=== PATIENT | female | born 1935 | race Caucasian/White ===

== ENCOUNTER → 2016-07-08 | Outpatient (CLI) | payer MEDICARE, BC ==
[~2016-07-08] MED LIST: ACET-62 PO; ASPI-558 PO; BACL10TA PO; CARB15DR2 BOTH EYES; CHOL100030 PO; FEXO-118 PO; FLUT9.9S EA NOSTRIL; FURO-35 PO; HYDR-4180 PO; LACT1CAP70 PO; LEVO137T2 PO; METF-200 PO; OXYC1TAB8 PO; POTA10TA14 PO; TRAM50TA4 PO
--- NOTE | 2016-07-08 16:34 | DI ---
Indication: ITS.REASON: M79.605 PAIN IN LEFT LEG PROCEDURE: US VENOUS DUPLEX, LOWER EXT LT: Encounter: Initial Comparison: None Technique: Color Doppler duplex and grayscale sonographic imaging of the left lower extremity was performed. Findings: There is no evidence for acute deep venous thrombosis in the left thigh. Specifically, serial graded compression was performed from the inguinal ligament to the popliteal bifurcation, on the left thigh, demonstrating appropriate compressibility of the deep venous system. In addition, color and pulsed Doppler demonstrate appropriate spontaneous flow, variation with respiration, and augmentation with calf compression. At the ankle, normal flow is identified in the posterior tibial veins; these vessels are also normal in caliber. Impression: No evidence of acute DVT in the left lower limb. .
== END ==
LOC: IMA 16:05
PROVIDERS: ATTEND Family Medicine
DX: M79.605 Pain in left leg (principal); R22.42 Localized swelling, mass and lump, left lower limb

== ENCOUNTER → 2016-07-17 | Outpatient (CLI) | payer MEDICARE, BC ==
[~2016-07-17] MED LIST changes: +IOHEXOL 180 MG/ML 20ml INJECTION ONE; +LIDOCAINE 1% (10mg/ml) 5ml VIAL ONE; +MethylPREDNISolone ACETATE 40mg/1ml ONE
--- NOTE | 2016-07-17 10:22 | DI ---
Indication:ITS.REASON: M54.5 LOW BACK PAIN Procedure:EPIDURAL INJ.SPINE W FLUO CATH LUMBAR EPIDURAL INJECTION: The patient has low back and radicular pain. The patient has not had any previous epidurals. The details of the procedure, including the benefits, risks, and alternatives were explained to the patient. All of their questions were answered. They stated that they understood and wished to proceed. Informed consent was then obtained. A pre-procedural timeout was performed to confirm the correct patient and procedure. Utilizing aseptic technique, local lidocaine anesthetic, and fluoroscopic guidance throughout, a 22-gauge spinal needle was directed into the lumbar epidural space via an interlaminar approach at the L5-S1 level. Contrast was injected to assure proper positioning of the needle tip. A fluoroscopic image was then taken and archived. Subsequently, 120 mg Depo-Medrol was injected into the epidural space. The patient tolerated the procedure well. IMPRESSION: Successful lumbar epidural steroid injection. Fluoroscopy dose: 12.46 mGy (Cumulative air kerma) Sj Elizalde RPA/CLAUDIO performed this under my personal supervision. .
== END ==
LOC: IMA 09:16
PROVIDERS: ATTEND Physician Assistant Surgical
DX: M54.5 Low back pain (principal)
CPT/HCPCS: 62323; J1030; Q9965

== ENCOUNTER 2017-04-27 21:05 | Inpatient (IN) ==
[2017-04-27] MEDS ORDERED: ASPIRIN 81 MG CHEWABLE TABLET PO ONE (21:09)
[2017-04-27] MEDS ORDERED: LABETALOL 100mg/20ml INJECTION IVP ONE (21:19)
[2017-04-27] MEDS: SALINE FLUSH 10ml SYRINGE IVF PRN (21:31)
--- NOTE | 2017-04-27 21:31 | Emergency Department Report ---
Chest Pain HPI - General Chief Complaint: Chest Pain <Rubén Huizar Q - 05/01/17 16:22> Stated Complaint: chest pains <Rubén Huizar - 05/01/17 16:22> Time Seen by Provider: 04/27/17 21:15 <Rubén Huizar - 05/01/17 16:22> Source: patient <Maritza Rashid 04/27/17 21:33> Mode of arrival: wheelchair <Maritza Rashid 04/27/17 21:33> Limitations: no limitations <Maritza Rashid Severino Smith 04/27/17 21:33> - History of Present Illness HPI narrative: Pt presents with a c/o chest pressure which started this evening while pt was eating a salad for supper. Pt states she has had some shortness of breath she took one baby aspirin and then tried to lay down to rest. At that point the chest pressure continued she took one of her husbands NTG without relief and daughters then brought her to the ER. Pt denies nausea or vomiting. She dies not have pain to her neck, jaw, back or arms. She also denies diaphoresis <Maritza Rashid 04/27/17 21:33> MD complaint: chest pain <Maritza Rashid 04/27/17 21:33> Occurred At: home <Maritza Rashid 04/27/17 21:33> Onset (ago): hour(s) <Maritza Rashid 04/27/17 21:33> Duration: constant <Maritza Rashid 04/27/17 21:33> Onset: during rest <Maritza Rashid 04/27/17 21:33> Pain location: substernal <Maritza Rashid 04/27/17 21:33> Severity: moderate <Maritza Rashid 04/27/17 21:33> Quality: heaviness <Maritza Rashid 04/27/17 21:33> Pain radiation: none <Maritza Rashid 04/27/17 21:33> Relieving factors: nothing <Maritza Rashid 04/27/17 21:33> Exacerbating factors: exertion <Maritza Rashid R - 04/27/17 21:33> Aspirin Today: 81 mg x 1 <Maritza Rashid R - 04/27/17 21:33> Nitro Today: 0.4 mg x 1 <Maritza Rashid R - 04/27/17 21:33> - Related Data Home Medications Medication Instructions Recorded Confirmed Aspirin [Aspir 81] 81 mg PO HS #0 06/07/13 04/27/17 Cholecalciferol (Vitamin D3) 1,000 unit PO HS #0 06/07/13 04/27/17 (Vitamin D3) Metformin HCl 500 mg PO BID #0 06/07/13 04/27/17 Carboxymethylcellulos/Glycerin 1 drop BOTH EYES QID #0 07/07/15 04/27/17 [Refresh Optive Eye Drops] Fexofenadine HCl 180 mg PO DAILY #0 07/07/15 04/27/17 Levothyroxine Sodium 137 mcg PO DAILY #0 07/07/15 04/27/17 Acetaminophen 2 tab PO Q8H PRN #0 07/14/15 04/27/17 Potassium Chloride 10 meq PO BID #0 07/14/15 04/28/17 Vitamin B-12 1,000 mcg PO DAILY 04/27/17 04/27/17 Ferrous Sulfate [Iron] 65 mg PO DAILY 04/28/17 04/28/17 Furosemide [Lasix] 1 tab PO BID 04/28/17 04/28/17 Turmeric/Turmeric Ext/Pepr Ext 500 mg PO HS 04/28/17 04/28/17 [Turmeric Complex 500 mg Cap] Ubidecarenone [Co Q-10] 100 mg PO DAILY 04/28/17 04/28/17 <Rubén Huizar Q - 05/01/17 16:22> Allergies Allergy/AdvReac Type Severity Reaction Status Date / Time amlodipine Allergy Severe EDEMA Verified 04/28/17 07:18 diltiazem Allergy Intermediate ACHY Verified 04/28/17 07:18 MUSCLES & WEAKNESS doxazosin Allergy Intermediate ITCHING Verified 04/28/17 07:18 doxepin Allergy Intermediate WEIRD Verified 04/28/17 07:18 DREAMS lisinopril Allergy Intermediate ACHY Verified 04/28/17 07:18 MUSCLES & WEAKNESS losartan Allergy Intermediate ACHY Verified 04/28/17 07:18 MUSCLES & WEAKNESS pitavastatin Allergy Intermediate ACHY Verified 04/28/17 07:18 MUSCLES & WEAKNESS hydromorphone Allergy Mild NAUSEA Verified 04/28/17 07:18 Aaqtixi-Off-Ale Reductase Allergy Unknown Verified 04/28/17 07:18 Inhibitor hydrocodone AdvReac Unknown NAUSEA Verified 04/28/17 07:18 <Rubén Huizar Q - 05/01/17 16:22> Review of Systems All systems: reviewed and negative except as stated <Maritza Rashid 07/10 21:33> Constitutional: Reports: as per HPI <Maritza Rashid 04/27/17 21:33> Cardiovascular: Reports: as per HPI <Maritza Rashid 04/27/17 21:33> Respiratory: Reports: as per HPI <Maritza Rashid 04/27/17 21:33> Gastrointestinal: Reports: constipation <Maritza Rashid 04/27/17 21:33> Musculoskeletal: Reports: as per HPI <Maritza Rashid 04/27/17 21:33> Neurological: Reports: as per HPI <Maritza Rashid 04/27/17 21:33> [facility] Patient Stated Medical History Glaucoma Yes Hypertension Yes Diabetes Mellitus Type 2 Yes Osteoarthritis Yes <Rubén Huizar Q - 05/01/17 16:22> Patient Stated Medical History Glaucoma Yes Hypertension Yes Diabetes Mellitus Type 2 Yes Osteoarthritis Yes <Maritza Rashid 04/27/17 21:45> Physical Exam - Limitations Limitations: no limitations <Maritza Rashid 04/27/17 21:33> - General General appearance: alert, in no apparent distress <Maritza Rashid 04/27 21:33> - Normal Exams: Eyes:: Pupils are PERRLA w/ EOMI <Maritza Rashid 04/27/17 21:33> Chest/Respirations:: Clear all taveras, with good airflow <Maritza Rashid 04/27/17 21:33> Abdomen:: Bowel sounds positive, soft, non-tender, non-distended <Maritza Rashid 04/27/17 21:33> Musculoskeletal:: No tenderness, or deformity noted, good range of motion, all extremities <Maritza Rashid 04/27/17 21:33> Integumentary:: No rashes <Maritza Rashid 04/27/17 21:33> Neurological:: Patient is alert, and oriented, cranial nerves, motor/sensory/ cerebellar, exams w/o gross deficits, to observation <Maritza Rashid 07/10 21:33> Psychiatric:: Patient exhibits, appropriate attention, emotion and affect < Maritza Rashid 04/27/17 21:33> - Cardiovascular Cardiovascular exam: Present: tachycardia, irregular rhythm. Absent: systolic murmur <Maritza Rashid 04/27/17 21:33> - Expanded Cardiovascular Exam Peripheral pulses: 2+: dorsalis pedis (R), dorsalis pedis (L) <Maritza Rashid 04/27/17 21:33> Course Vital Signs Temperature 97.7 F 04/27/17 21:24 Pulse Rate 133 H 04/27/17 21:24 Respiratory Rate 28 H 04/27/17 21:24 Blood Pressure 180/81 H 04/27/17 21:24 Pulse Oximetry 97 04/27/17 21:24 Temperature 100.4 F 05/01/17 16:00 Pulse Rate 65 05/01/17 16:00 Respiratory Rate 18 05/01/17 11:53 Blood Pressure 168/72 H 05/01/17 16:00 Pulse Oximetry 97 05/01/17 16:00 <Rubén Huizar Q - 05/01/17 16:22> Vital Signs Temperature 97.7 F 04/27/17 21:24 Pulse Rate 133 H 04/27/17 21:24 Respiratory Rate 28 H 04/27/17 21:24 Blood Pressure 180/81 H 04/27/17 21:24 Pulse Oximetry 97 04/27/17 21:24 Temperature 100.4 F 05/01/17 16:00 Pulse Rate 65 05/01/17 16:00 Respiratory Rate 18 05/01/17 11:53 Blood Pressure 168/72 H 05/01/17 16:00 Pulse Oximetry 97 05/01/17 16:00 <Maritza Rashid 04/27/17 21:45> Chest Pain - MDM Narrative Medical decision making narrative: PT given Labetalol IV with no change in her rhythm. Verapamil IV at 5 mg with little change followed by Verapamil at 10 mg with a successful drop in rate to 75-100bpm. Pt remains is atrial fib. She reports chest "heaviness" relieved. Lovenox given. Labs, X ray, and EKG reviewed. Dr Patel called for admission. He will admit pt observation. Findings and plan discussed with pt and family, questions answered, pt voices understanding. <Maritza Rashid - 04/27/17 23:02> - Differential Diagnosis Likely: stable angina, unstable angina pectoris, atypical chest pain, chest pain (atrial fib, atrial flutter) <Maritza Rashid - 04/27/17 21:33> - Lab Data Attestation: I reviewed the patient's lab results. <Maritza Rashid - 04/27 21:45> Result diagrams: 05/01/17 04:23 05/01/17 04:23 <Rubén Huizar Q - 05/01/17 16:22> Lab Results 04/27/17 04/27/17 04/27/17 Range/Units 21:26 21:26 21:26 WBC 9.9 (4.5-11.0) T/MM3 RBC 4.70 (4.00-5.20) M/MM3 Hgb 13.9 (12-16) GM/DL Hct 41.0 (36-46) % MCV 87.2 (80-100) UM3 MCH 29.6 (26-34) UUG MCHC 33.9 (31-37) GM/DL RDW Std Deviation 41.1 (36.9-50.2) FL Plt Count 294 (130-400) T/MM3 MPV 8.9 L (9.4-12.4) UM3 Immature Gran % (Auto) 0.2 (0.0-0.5) % Neut % (Auto) 63.5 (33-66) % Lymph % (Auto) 25.3 (23-45) % [place] % (Auto) 6.0 (0-9.0) % Eos % (Auto) 4.3 H (0-4) % Baso % (Auto) 0.7 (0-2) % Neut # (Auto) 6.3 (1.8-7.7) T/MM3 Lymph # (Auto) 2.5 (1-4.8) T/MM3 [place] # (Auto) 0.6 (0-0.8) T/MM3 Eos # (Auto) 0.4 (0-0.5) T/MM3 Baso # (Auto) 0.1 (0-0.2) T/MM3 Abs Immat Gran (auto) 0.02 (0.00-0.03) T/MM3 Turbidity 37 H (0-20) Sodium 143 (134-144) MEQ/L Potassium 4.0 (3.6-5) MEQ/L Chloride 104 (98-107) MEQ/L Carbon Dioxide 23 (22-30) MEQ/L Anion Gap 16 H (5-15) MEQ/L BUN 19.0 H (7-17) MG/DL Creatinine 1.2 (0.7-1.2) mg/dL GFR Calculation 43 BUN/Creatinine Ratio 16 (6-26) RATIO Glucose 152 H (65-110) MG/DL Calculated Osmolality 280 (261-280) MOSM/KG Calcium 10.0 (8.4-10.2) MG/DL Magnesium (1.6-2.3) MG/DL Icterus Index < 2 (0-7) Troponin I < 0.012 (0-0.12) ng/ml NT-Pro-B Natriuret Pep 190 H (0-175) pg/mL TSH 3.53 (0.47-4.68) MIU/L Specimen Hemolysis < 15 (0-25) 04/27/17 04/28/17 04/28/17 Range/Units 21:26 09:09 09:09 WBC 7.3 (4.5-11.0) T/MM3 RBC 4.44 (4.00-5.20) M/MM3 Hgb 12.7 (12-16) GM/DL Hct 39.3 (36-46) % MCV 88.5 (80-100) UM3 MCH 28.6 (26-34) UUG MCHC 32.3 (31-37) GM/DL RDW Std Deviation 42.3 (36.9-50.2) FL Plt Count 260 (130-400) T/MM3 MPV 9.0 L (9.4-12.4) UM3 Immature Gran % (Auto) (0.0-0.5) % Neut % (Auto) (33-66) % Lymph % (Auto) (23-45) % [place] % (Auto) (0-9.0) % Eos % (Auto) (0-4) % Baso % (Auto) (0-2) % Neut # (Auto) (1.8-7.7) T/MM3 Lymph # (Auto) (1-4.8) T/MM3 [place] # (Auto) (0-0.8) T/MM3 Eos # (Auto) (0-0.5) T/MM3 Baso # (Auto) (0-0.2) T/MM3 Abs Immat Gran (auto) (0.00-0.03) T/MM3 Turbidity < 20 (0-20) Sodium 143 (134-144) MEQ/L Potassium 4.1 (3.6-5) MEQ/L Chloride 104 (98-107) MEQ/L Carbon Dioxide 25 (22-30) MEQ/L Anion Gap 14 (5-15) MEQ/L BUN 19.0 H (7-17) MG/DL Creatinine 1.2 (0.7-1.2) mg/dL GFR Calculation 43 BUN/Creatinine Ratio 16 (6-26) RATIO Glucose 182 H (65-110) MG/DL Calculated Osmolality 282 H (261-280) MOSM/KG Calcium 9.8 (8.4-10.2) MG/DL Magnesium 2.0 2.0 (1.6-2.3) MG/DL Icterus Index < 2 (0-7) Troponin I 0.134 H D (0-0.12) ng/ml NT-Pro-B Natriuret Pep (0-175) pg/mL TSH (0.47-4.68) MIU/L Specimen Hemolysis < 15 (0-25) <Rubén Huizar Q - 05/01/17 16:22> Lab Results 04/27/17 04/27/17 04/27/17 Range/Units 21:26 21:26 21:26 WBC 9.9 (4.5-11.0) T/MM3 RBC 4.70 (4.00-5.20) M/MM3 Hgb 13.9 (12-16) GM/DL Hct 41.0 (36-46) % MCV 87.2 (80-100) UM3 MCH 29.6 (26-34) UUG MCHC 33.9 (31-37) GM/DL RDW Std Deviation 41.1 (36.9-50.2) FL Plt Count 294 (130-400) T/MM3 MPV 8.9 L (9.4-12.4) UM3 Immature Gran % (Auto) 0.2 (0.0-0.5) % Neut % (Auto) 63.5 (33-66) % Lymph % (Auto) 25.3 (23-45) % [place] % (Auto) 6.0 (0-9.0) % Eos % (Auto) 4.3 H (0-4) % Baso % (Auto) 0.7 (0-2) % Neut # (Auto) 6.3 (1.8-7.7) T/MM3 Lymph # (Auto) 2.5 (1-4.8) T/MM3 [place] # (Auto) 0.6 (0-0.8) T/MM3 Eos # (Auto) 0.4 (0-0.5) T/MM3 Baso # (Auto) 0.1 (0-0.2) T/MM3 Abs Immat Gran (auto) 0.02 (0.00-0.03) T/MM3 Turbidity 37 H (0-20) Sodium 143 (134-144) MEQ/L Potassium 4.0 (3.6-5) MEQ/L Chloride 104 (98-107) MEQ/L Carbon Dioxide 23 (22-30) MEQ/L Anion Gap 16 H (5-15) MEQ/L BUN 19.0 H (7-17) MG/DL Creatinine 1.2 (0.7-1.2) mg/dL GFR Calculation 43 BUN/Creatinine Ratio 16 (6-26) RATIO Glucose 152 H (65-110) MG/DL Calculated Osmolality 280 (261-280) MOSM/KG Calcium 10.0 (8.4-10.2) MG/DL Magnesium (1.6-2.3) MG/DL Icterus Index < 2 (0-7) Troponin I < 0.012 (0-0.12) ng/ml NT-Pro-B Natriuret Pep 190 H (0-175) pg/mL TSH 3.53 (0.47-4.68) MIU/L Specimen Hemolysis < 15 (0-25) 04/27/17 04/28/17 04/28/17 Range/Units 21:26 09:09 09:09 WBC 7.3 (4.5-11.0) T/MM3 RBC 4.44 (4.00-5.20) M/MM3 Hgb 12.7 (12-16) GM/DL Hct 39.3 (36-46) % MCV 88.5 (80-100) UM3 MCH 28.6 (26-34) UUG MCHC 32.3 (31-37) GM/DL RDW Std Deviation 42.3 (36.9-50.2) FL Plt Count 260 (130-400) T/MM3 MPV 9.0 L (9.4-12.4) UM3 Immature Gran % (Auto) (0.0-0.5) % Neut % (Auto) (33-66) % Lymph % (Auto) (23-45) % [place] % (Auto) (0-9.0) % Eos % (Auto) (0-4) % Baso % (Auto) (0-2) % Neut # (Auto) (1.8-7.7) T/MM3 Lymph # (Auto) (1-4.8) T/MM3 [place] # (Auto) (0-0.8) T/MM3 Eos # (Auto) (0-0.5) T/MM3 Baso # (Auto) (0-0.2) T/MM3 Abs Immat Gran (auto) (0.00-0.03) T/MM3 Turbidity < 20 (0-20) Sodium 143 (134-144) MEQ/L Potassium 4.1 (3.6-5) MEQ/L Chloride 104 (98-107) MEQ/L Carbon Dioxide 25 (22-30) MEQ/L Anion Gap 14 (5-15) MEQ/L BUN 19.0 H (7-17) MG/DL Creatinine 1.2 (0.7-1.2) mg/dL GFR Calculation 43 BUN/Creatinine Ratio 16 (6-26) RATIO Glucose 182 H (65-110) MG/DL Calculated Osmolality 282 H (261-280) MOSM/KG Calcium 9.8 (8.4-10.2) MG/DL Magnesium 2.0 2.0 (1.6-2.3) MG/DL Icterus Index < 2 (0-7) Troponin I 0.134 H D (0-0.12) ng/ml NT-Pro-B Natriuret Pep (0-175) pg/mL TSH (0.47-4.68) MIU/L Specimen Hemolysis < 15 (0-25) <Maritza Rashid 04/27/17 21:45> - Radiology Data Attestation: I reviewed the patient's radiology results. <GayeRubén 05/01/17 16:22> I reviewed the patient's radiology results. (per Dr Huizar) < Maritza Rashid 04/27/17 23:02> Chest x-ray: No acute cardiopulmonary findings <Rubén Huizar 05/01/17 16:22> - EKG Data EKG #1 EKG attestation: Yes: I reviewed and interpreted this EKG. <GayeRubén 05/01/17 16:22> Yes: I reviewed and interpreted this EKG. <Maritza Rashid 04/27/17 23:02> Rate: tachycardia <Rubén Huizar 05/01/17 16:22> tachycardia <Maritza Rashid Severino 04/27/17 23:02> Rhythm: A.Fib <Rubén Huizar 05/01/17 16:22> A.Fib <Maritza Rashid 04/27/17 23:02> Delta/QRS: left axis deviation <GayeRubén 05/01/17 16:22> left axis deviation <Maritza Rashid 04/27/17 23:02> Interpretation: no acute changes <GayeRubén 05/01/17 16:22> EKG #2 EKG attestation: Yes: I reviewed and interpreted this EKG. <GayeRubén 05/01/17 16:22> Rate: normal <Rubén Huizar 05/01/17 16:22> Rhythm: A.Fib <Rubén Huizar 05/01/17 16:22> When compared to previous EKG there are: no significant changes <Frank Huizarn 05/01/17 16:22> Interpretation: no acute changes <Rubén Huizar 05/01/17 16:22> Disposition Clinical Impression: Atrial fibrillation with RVR <Frank Huizarn 05/01/17 16:22> Disposition: 02 To [facility] [place] Acute Care <Frank Huizarn 05/01/17 16:22> Condition: Improved <Frank Huizarn 05/01/17 16:22> Instructions: <Rubén Huizar 05/01/17 16:22> Prescriptions: No Action Cholecalciferol (Vitamin D3) (Vitamin D3) 1,000 unit PO HS #0 Aspirin [Aspir 81] 81 mg PO HS #0 Acetaminophen 2 tab PO Q8H PRN #0 PRN Reason: HEADACHE Potassium Chloride 10 meq PO BID #0 Ferrous Sulfate [Iron] 65 mg PO DAILY Turmeric/Turmeric Ext/Pepr Ext [Turmeric Complex 500 mg Cap] 500 mg PO HS Metformin HCl 500 mg PO BID #0 Fexofenadine HCl 180 mg PO DAILY #0 Levothyroxine Sodium 137 mcg PO DAILY #0 Carboxymethylcellulos/Glycerin [Refresh Optive Eye Drops] 1 drop BOTH EYES QID #0 Vitamin B-12 1,000 mcg PO DAILY Ubidecarenone [Co Q-10] 100 mg PO DAILY Furosemide [Lasix] 1 tab PO BID <Frank Huizarn 05/01/17 16:22> Referrals: Mary Lou Mayorga MD [Family Provider] - <Frank Huizarn 11/10 16:22> Forms: <Frank Huizarn 05/01/17 16:22> Time of Disposition: 22:45 <Maritza Rashid - 04/27/17 23:02> - Seen By: midlevel <Maritza Rashid 04/27/17 23:02>
[2017-04-27] MEDS ORDERED: Verapamil 5 MG/2 ML VIAL IVP ONE ×2 (21:41→22:05)
[2017-04-27] MEDS ORDERED: ENOXAPARIN 120 MG/0.8 ML INJECTION SQ ONE (22:28)
[2017-04-27 23:06] VITALS: BMI 39.9
[2017-04-27] MEDS ORDERED: FUROSEMIDE 20 MG/2 ML INJECTION IVP ONE (23:56)
--- NOTE | 2017-04-28 07:39 | XRay Report ---
Indication: chest pain, a fib PROCEDURE: XR chest 1V: Encounter: Initial Comparison: October 21, 2016 Findings: The lungs are stable in appearance without new focal airspace consolidation. There is no pleural effusion or pneumothorax. The heart size, pulmonary vascularity and mediastinal contours are unchanged. IMPRESSION: Stable appearance of the chest without acute cardiopulmonary disease. .
[2017-04-28] MEDS ORDERED: ENOXAPARIN 120 MG/0.8 ML INJECTION SQ SCH (09:00)
[2017-04-28] MEDS: ENOXAPARIN 120 MG/0.8 ML INJECTION SQ SCH ×3 (09:21→20:16)
[2017-04-28] MEDS: SOTALOL 80 MG TABLET PO SCH ×2 (09:22→17:41)
--- NOTE | 2017-04-28 10:38 | Cardiology History & Physical ---
History of Present Illness Chief complaint: chest pain, palpitations HPI: Ayana is a 81 female who presented with chest pressure which started last evening while pt was eating a salad for supper. She reports the feeling of someone standing on her chest, followed by shortness of breath. She took one baby aspirin and her 's SL Nitro and tried to lay down to rest. At that point , she began to feel her heart rate pounding in her chest, neck and head and the chest pressure continued. Her daughters then brought her to the ER. She denies nausea, vomiting or diaphoresis. Dr. Patel was contacted for observation admission for further evaluation. She is examined in her room on Medical. She denies recent illness, fever, chills , cough, sore throat, dyspnea, N/V/D, dysuria. Review of Systems - Constitutional Constitutional: Present: as per HPI. Absent: chills, fever(s) - EENMT Eyes: Absent: change in vision Balance: Absent: vertigo Mouth/Throat: Absent: sore throat - Cardiovascular Cardiovascular: Present: chest pain, palpitations. Absent: syncope, dyspnea on exertion, orthopnea, edema, heart murmur Rhythm: Absent: abnormal rhythm Vascular: Absent: pedal edema - Respiratory Respiratory: Present: dyspnea. Absent: cough, dyspnea on exertion, wheezing - Gastrointestinal Gastrointestinal: Absent: abdominal pain, constipation, diarrhea, nausea, vomiting - Genitourinary Genitourinary: Absent: dysuria - Integumentary/Breasts Integumentary: Absent: rash - Neurological Neurological: Absent: dizziness - Endocrine Endocrine: Present: palpitations [facility], [facility] Patient Stated Medical History Hypertension Yes Diabetes Mellitus Type 2 Yes Osteoarthritis Yes Surgical History: Radial Keratotomy bilateral eyes. cholecystectomy 1994-- Jennifer. Breast surgery--benign cysts--Dr. Jara. Knee replacement 03/30 left ; 08/27 right--Dr. Sánchez. Bone Marrow Biopsy--Dr. Randhawa. Colonoscopy 06/08/14-- Man. Laser pressure reduction--R eye 10/21/13, Left eye, 10/28/13. Cataract removal L 01/24/14; R 04/04/14 - Social History Smoking status: Never smoker Substance use type: does not use Alcohol intake frequency: does not drink Housing: house Household members: spouse Current occupational status: retired Current residence: Apartment/Private Home Medications Home Medications Medication Instructions Recorded Confirmed Type Aspirin [Aspir 81] 81 mg PO HS #0 06/07/13 04/27/17 History Cholecalciferol (Vitamin D3) 1,000 unit PO HS #0 06/07/13 04/27/17 History (Vitamin D3) Metformin HCl 500 mg PO BID #0 06/07/13 04/27/17 History Carboxymethylcellulos/Glycerin 1 drop BOTH EYES QID #0 07/07/15 04/27/17 History [Refresh Optive Eye Drops] Fexofenadine HCl 180 mg PO DAILY #0 07/07/15 04/27/17 History Levothyroxine Sodium 137 mcg PO DAILY #0 07/07/15 04/27/17 History Acetaminophen 2 tab PO Q8H PRN #0 07/14/15 04/27/17 History Potassium Chloride 10 meq PO BID #0 07/14/15 04/28/17 History Vitamin B-12 1,000 mcg PO DAILY 04/27/17 04/27/17 History Ferrous Sulfate [Iron] 65 mg PO DAILY 04/28/17 04/28/17 History Furosemide [Lasix] 1 tab PO BID 04/28/17 04/28/17 History Turmeric/Turmeric Ext/Pepr Ext 500 mg PO HS 04/28/17 04/28/17 History [Turmeric Complex 500 mg Cap] Ubidecarenone [Co Q-10] 100 mg PO DAILY 04/28/17 04/28/17 History Amiodarone [Pacerone] 200 mg PO DAILY #30 tab 05/01/17 Rx Amiodarone [Pacerone] 400 mg PO BID #22 tab 05/01/17 Rx Apixaban [Eliquis] 5 mg PO BID #60 tab 05/01/17 Rx Clopidogrel [Plavix] 75 mg PO DAILY #30 tab 05/01/17 Rx Minoxidil [Loniten] 5 mg PO DAILY #60 tab 05/01/17 Rx Nitroglycerin [Nitrostat] 0.4 mg SL Q5M PRN #25 tab 05/01/17 Rx Allergies Allergy/AdvReac Type Severity Reaction Status Date / Time amlodipine Allergy Severe EDEMA Verified 04/28/17 07:18 diltiazem Allergy Intermediate ACHY Verified 04/28/17 07:18 MUSCLES & WEAKNESS doxazosin Allergy Intermediate ITCHING Verified 04/28/17 07:18 doxepin Allergy Intermediate WEIRD Verified 04/28/17 07:18 DREAMS lisinopril Allergy Intermediate ACHY Verified 04/28/17 07:18 MUSCLES & WEAKNESS losartan Allergy Intermediate ACHY Verified 04/28/17 07:18 MUSCLES & WEAKNESS pitavastatin Allergy Intermediate ACHY Verified 04/28/17 07:18 MUSCLES & WEAKNESS hydromorphone Allergy Mild NAUSEA Verified 04/28/17 07:18 [id number] Reductase Allergy Unknown Verified 04/28/17 07:18 Inhibitor hydrocodone AdvReac Unknown NAUSEA Verified 04/28/17 07:18 Exam Vital signs: Temperature 96 F L 04/28/17 04:35 Pulse Rate 56 L 04/28/17 09:22 Respiratory Rate 22 04/27/17 22:45 Blood Pressure 127/68 04/28/17 04:35 Pulse Oximetry 94 04/28/17 04:35 - Constitutional no acute distress, well nourished, cooperative - Routine HEENT Exam Head: Present: normocephalic ENT: Present: mucous membranes moist - Routine Neck Exam Absent: JVD, carotid bruit - Routine Chest/Breast/Axilla Exam Chest wall: Absent: tenderness - Routine Respiratory Exam Present: CTA bilaterally. Absent: rales, wheezes - Routine Cardiovascular Exam Present: RRR, no murmur - Routine Abdominal Exam Present: soft, normoactive bowel sounds - Routine Extremities Exam Present: no edema - Routine Skin Exam Present: intact, dry, warm - Routine Neurological Exam Present: alert, oriented X3 - Routine Psychiatric Exam Present: normal affect, normal thought process Results 05/01/17 04:23 05/01/17 04:23 Cardiac Enzymes 04/28/17 Range/Units 09:09 Troponin I 0.134 H D (0-0.12) ng/ml CBC 04/28/17 Range/Units 09:09 WBC 7.3 (4.5-11.0) T/MM3 RBC 4.44 (4.00-5.20) M/MM3 Hgb 12.7 (12-16) GM/DL Hct 39.3 (36-46) % Plt Count 260 (130-400) T/MM3 Comprehensive Metabolic Panel 04/28/17 Range/Units 09:09 Sodium 143 (134-144) MEQ/L Potassium 4.1 (3.6-5) MEQ/L Chloride 104 (98-107) MEQ/L Carbon Dioxide 25 (22-30) MEQ/L BUN 19.0 H (7-17) MG/DL Creatinine 1.2 (0.7-1.2) mg/dL Glucose 182 H (65-110) MG/DL Calcium 9.8 (8.4-10.2) MG/DL Intake and Output 04/27/17 04/28/17 04/28/17 22:59 06:59 14:59 Intake Total 800 / 800 Balance 800 / 800 Intake: Oral 800 / 800 Other: # Voids 1 Weight 247 lb 2.211 oz 243 lb 9.773 oz Patient Weight 04/29/17 06:59 Weight 243 lb 9.773 oz - Imaging and Cardiology Imaging & Cardiology Narrative: Date of Exam: 04/27/17 Ordering Provider: Maritza Rashid APRN Type of Exam(s): XR chest 1V Reason for Exam(s): chest pain, a fib Indication: chest pain, a fib PROCEDURE: XR chest 1V: Encounter: Initial Comparison: October 21, 2016 Findings: The lungs are stable in appearance without new focal airspace consolidation. There is no pleural effusion or pneumothorax. The heart size, pulmonary vascularity and mediastinal contours are unchanged. IMPRESSION: Stable appearance of the chest without acute cardiopulmonary disease. 04/28/17 10:56 04/29/17 15:48 Date of Exam: 04/28/17 Type of Exam(s): US echo doppler complete DATE OF PROCEDURE April 28, 2017 This is a two-dimensional echo with spectral Doppler, color-flow and M-mode. It was obtained in a patient with atrial fibrillation. Left atrium is dilated. Left ventricular end-diastolic dimension is normal. Left ventricular wall thickness is normal. LV systolic function is normal with ejection fraction of 70%. Right atrium is dilated. Right ventricle is normal. Aortic root dimension is normal. Mitral valve annulus is calcified. Mitral valve leaflets are normal with trace of mitral regurgitation. Aortic valve shows mild fibrocalcific changes with no stenosis. Mild aortic insufficiency is present. Tricuspid valve shows [id number] tricuspid regurgitation with normal estimated pulmonary artery systolic pressure of 28. Pulmonary valve shows mild pulmonary insufficiency. There is no pericardial effusion. IMPRESSION 1. Normal LV systolic function with ejection fraction of 70%. 2. Biatrial dilation. 3. Mitral annulus calcification with trace of mitral regurgitation. 4. Aortic sclerosis with mild aortic insufficiency. 5. [id number] tricuspid regurgitation with normal estimated pulmonary artery systolic pressure of 28. 6. Mild pulmonary insufficiency. EKG interpretations - EKG EKG shows: atrial fibrillation (with RVR) - Blocks, axis, hypertrophy, ST abn Repolarization changes or abnormalities: nonspecific abnormality, ST segment, and/or T wave, ST or T wave suggestive of ischemia (Leads V4, V5, V6) Hospital Course This is a general summary of the patient's hospital course. For more details refer to the complete medical record. Time spent with patient: 25 - 35 minutes Resuscitation Status: Full Code Assessment and Plan - Attestation Attestation Narrative: 05/04/17 16:54 Recommendation After examining the patient I agree with the above assessment. I am involved in the formulation of the patient's plan of care. - Assessment and Plan (1) Elevated troponin Status: Acute - Trend troponin: 1) <0.012 2)0.134 - EKG with ST depression in V4, V5, V6 (2) Atrial fibrillation with RVR Status: Acute Given Labetalol IV with no change in her rhythm. - Verapamil IV at 5 mg with little change followed by Verapamil at 10 mg with a successful drop in rate to 75-100bpm. - Lovenox given. - Converted to SR - Start Sotalol 40mg po BID - Monitor cardiac telemetry - EKG in am or prn rhythm changes (3) Essential (primary) hypertension Status: Chronic Continue Lasix and KCl (4) Type 2 diabetes mellitus without complications Status: Chronic Hold Metformin - Assessment and Plan Elevated Troponin: - Trend troponin: 1) <0.0012 2)0.134 - EKG with ST depression in V4, V5, V6 A Fib RVR: Given Labetalol IV with no change in her rhythm. - Verapamil IV at 5 mg with little change followed by Verapamil at 10 mg with a successful drop in rate to 75-100bpm. - Lovenox given. - Converted to SR - Start Sotalol 40mg po BID - Monitor cardiac telemetry - EKG in am or prn rhythm changes HTN: Continue Lasix and KCl
[2017-04-28] MEDS: FEXOFENADINE 180 MG TABLET PO SCH (11:21)
[2017-04-28] MEDS: FUROSEMIDE 20 MG TAB PO SCH ×2 (11:47→17:42)
[2017-04-28] MEDS: REFRESH CLASSIC Eye Drops 0.4ml EACH EYE SCH ×4 (12:51→20:16)
--- NOTE | 2017-04-28 16:32 | Echocardiogram ---
DATE OF PROCEDURE April 28, 2017 This is a two-dimensional echo with spectral Doppler, color-flow and M-mode. It was obtained in a patient with atrial fibrillation. Left atrium is dilated. Left ventricular end-diastolic dimension is normal. Left ventricular wall thickness is normal. LV systolic function is normal with ejection fraction of 70%. Right atrium is dilated. Right ventricle is normal. Aortic root dimension is normal. Mitral valve annulus is calcified. Mitral valve leaflets are normal with trace of mitral regurgitation. Aortic valve shows mild fibrocalcific changes with no stenosis. Mild aortic insufficiency is present. Tricuspid valve shows [id number] tricuspid regurgitation with normal estimated pulmonary artery systolic pressure of 28. Pulmonary valve shows mild pulmonary insufficiency. There is no pericardial effusion. IMPRESSION 1. Normal LV systolic function with ejection fraction of 70%. 2. Biatrial dilation. 3. Mitral annulus calcification with trace of mitral regurgitation. 4. Aortic sclerosis with mild aortic insufficiency. 5. [id number] tricuspid regurgitation with normal estimated pulmonary artery systolic pressure of 28. 6. Mild pulmonary insufficiency. MTDD
[2017-04-28] MEDS: POTASSIUM CHLORIDE 10 MEQ PO SCH (17:42)
[2017-04-28] MEDS: SALINE FLUSH 10ml SYRINGE IVF PRN (19:14)
[2017-04-28] MEDS: ASPIRIN *EC* 81 MG TABLET PO SCH ×2 (19:14→20:16)
[2017-04-28] MEDS ORDERED: TURMERIC COMPLEX PO SCH (21:00)
[2017-04-29] MEDS: SOTALOL 80 MG TABLET PO SCH ×2 (05:42→09:59)
[2017-04-29] MEDS: COENZYME Q-10 200mg TABLET PO SCH (08:33)
[2017-04-29] MEDS: POTASSIUM CHLORIDE 10 MEQ PO SCH ×2 (08:33→17:10)
[2017-04-29] MEDS: FERROUS SULFATE 65 MG PO SCH (08:34)
[2017-04-29] MEDS: ENOXAPARIN 120 MG/0.8 ML INJECTION SQ SCH (08:34)
[2017-04-29] MEDS: FEXOFENADINE 180 MG TABLET PO SCH (08:35)
[2017-04-29] MEDS: FUROSEMIDE 20 MG TAB PO SCH ×2 (08:36→17:10)
[2017-04-29] MEDS: LEVOTHYROXINE 137 MCG TAB PO SCH (08:37)
[2017-04-29] MEDS: REFRESH CLASSIC Eye Drops 0.4ml EACH EYE SCH ×4 (08:38→20:46)
[2017-04-29] MEDS ORDERED: VITAMIN B12 1000 MCG PO SCH ×2 (09:00)
[2017-04-29] MEDS ORDERED: FLECAINIDE 100 MG TABLET PO SCH (14:08)
[2017-04-29] MEDS: FLECAINIDE 50 MG TABLET PO SCH ×2 (14:31→20:41)
--- NOTE | 2017-04-29 15:54 | Cardiology Progress Note ---
<Amarilys Thomas - Last Filed: 04/29/17 15:50> Subjective Principal diagnosis: afib RVR Interval history: Ayana is seen in follow up for AFib with RVR. She is anxious to discharge and is not pleased to hear that antiarrhythmic therapy needs to be changed but is agreeable. She denies any further chest pain or pressure, palpitations or dyspnea. Exam Vital signs: Temperature 96.2 F L 04/29/17 15:28 Pulse Rate 54 L 04/29/17 15:28 Respiratory Rate 16 04/29/17 15:28 Blood Pressure 143/92 H 04/29/17 15:28 Pulse Oximetry 95 04/29/17 15:28 Inpatient Medications: Generic Name Dose Route Start Last Admin Trade Name Freq PRN Reason Stop Dose Admin Acetaminophen 1,000 mg 04/28/17 10:34 Tylenol PO Q8H PRN HEAD Apixaban 5 mg 04/29/17 21:00 Eliquis PO BID JOSEPH Artificial Tears 1 drop 04/28/17 13:00 04/29/17 13:32 Refresh Classic EACH EYE Not Given QID [facility] Aspirin 81 mg 04/28/17 21:00 04/28/17 20:16 Ecotrin PO Not Given HS [facility] Cholecalciferol 1,000 unit 04/29/17 21:00 Vit. D-3 PO HS [facility] Coenzyme Q10 200 mg 04/29/17 09:00 04/29/17 08:33 Co Q-10 PO 200 mg DAILY JOSEPH Administration Fexofenadine HCl 180 mg 04/28/17 10:45 04/29/17 08:35 Lisbeth PO Not Given DAILY JOSEPH Flecainide Acetate 50 mg 04/29/17 14:30 04/29/17 14:31 Tambocor PO 50 mg BID JOSEPH Administration Furosemide 20 mg 04/28/17 10:35 04/29/17 08:36 Lasix PO 20 mg [id number] JOSEPH Administration Levothyroxine Sodium 137 mcg 04/29/17 09:00 04/29/17 08:37 Synthroid PO 137 mcg DAILY JOSEPH Administration Ferrous Sulfate [ 65 mg 04/29/17 09:00 04/29/17 08:34 Iron] 65 Mg - Pt Own PO 65 mg DAILY JOSEPH Administration Turmeric Complex 500 500 mg 04/28/17 21:00 - Pt Own PO HS [facility] Vitamin B-12 Tab 1, 1,000 mcg 04/29/17 09:00 04/29/17 08:37 000mcg - Pt Own PO 1,000 mcg DAILY JOSEPH Administration Potassium Chloride 10 meq 04/28/17 17:30 04/29/17 08:33 K-Dur 10 Meq Tablet PO 10 meq BIDWM JOSEPH Administration Sodium Chloride 10 - 80 ml 04/27/17 21:09 04/28/17 19:14 Iv Flush IVF 10 ml PRN PRN Administration Flushing Discontinued Medications Generic Name Dose Route Start Last Admin Trade Name Freq PRN Reason Stop Dose Admin Aspirin 324 mg 04/27/17 21:09 04/27/17 21:31 Asa PO 04/27/17 21:10 324 mg O ONE Administration Enoxaparin Sodium 110 mg 04/28/17 09:00 Lovenox SQ DAILY JOSEPH Enoxaparin Sodium 110 mg 04/27/17 22:28 04/27/17 22:33 Lovenox SQ 04/27/17 22:29 110 mg O ONE Administration Enoxaparin Sodium 112 mg 04/28/17 10:00 04/29/17 08:34 Lovenox SQ 112 mg BID JOSEPH Administration Flecainide Acetate 50 mg 04/29/17 14:08 04/29/17 14:55 Tambocor PO Not Given BID [facility] Furosemide 20 mg 04/27/17 23:56 04/28/17 00:09 Lasix IVP 04/27/17 23:57 20 mg ONCE ONE Administration Labetalol HCl 5 mg 04/27/17 21:19 04/27/17 21:31 Trandate IVP 04/27/17 21:20 5 mg O ONE Administration Metoprolol Tartrate 25 mg 04/27/17 23:48 04/28/17 09:04 Lopressor PO Not Given BIDWM [facility] Vitamin B-12 Tab 1, 1,000 mcg 04/29/17 09:00 000mcg - Pt Own PO DAILY JOSEPH Sotalol HCl 40 mg 04/28/17 08:38 04/29/17 09:59 Betapace PO 40 mg ACBID JOSEPH Administration Verapamil HCl 5 mg 04/27/17 21:41 04/27/17 21:47 Verapamil IVP 04/27/17 21:42 5 mg O ONE Administration Protocol Verapamil HCl 10 mg 04/27/17 22:05 04/27/17 22:10 Verapamil IVP 04/27/17 22:06 10 mg O ONE Administration Protocol - Constitutional no acute distress, well nourished, cooperative - Routine HEENT Exam Head: Present: normocephalic ENT: Present: mucous membranes moist - Routine Neck Exam Absent: JVD, carotid bruit - Routine Chest/Breast/Axilla Exam Chest wall: Absent: tenderness - Routine Respiratory Exam Present: CTA bilaterally. Absent: rales, wheezes - Routine Cardiovascular Exam Present: RRR, no murmur - Routine Abdominal Exam Present: soft, normoactive bowel sounds - Routine Extremities Exam Present: no edema - Routine Skin Exam Present: intact, dry, warm - Routine Neurological Exam Present: alert, oriented X3 - Routine Psychiatric Exam Present: normal affect, normal thought process - Additional findings Additional findings: Acetaminophen (Tylenol) 1,000 mg PO Q8H PRN PRN Reason: HEAD Apixaban (Eliquis) 5 mg PO BID [facility] Artificial Tears (Refresh Classic) 1 drop EACH EYE QID [facility] Last Admin: 04/29/17 13:32 Dose: Not Given Aspirin (Ecotrin) [address] [facility] Last Admin: 04/28/17 20:16 Dose: Not Given Cholecalciferol (Vit. D-3) 1,[address] [facility] Coenzyme Q10 (Co Q-10) 200 mg PO DAILY [facility] Last Admin: 04/29/17 08:33 Dose: 200 mg Fexofenadine HCl (Lisbeth) 180 mg PO DAILY [facility] Last Admin: 04/29/17 08:35 Dose: Not Given Flecainide Acetate (Tambocor) 50 mg PO BID [facility] Last Admin: 04/29/17 14:31 Dose: 50 mg Furosemide (Lasix) 20 mg PO [id number] [facility] Last Admin: 04/29/17 08:36 Dose: 20 mg Levothyroxine Sodium (Synthroid) 137 mcg PO DAILY [facility] Last Admin: 04/29/17 08:37 Dose: 137 mcg Ferrous Sulfate [ (Iron] 65 Mg - Pt Own) 65 mg PO DAILY [facility] Last Admin: 04/29/17 08:34 Dose: 65 mg Turmeric Complex 500 (- Pt Own) [address] [facility] Vitamin B-12 Tab 1, (000mcg - Pt Own) 1,000 mcg PO DAILY [facility] Last Admin: 04/29/17 08:37 Dose: 1,000 mcg Potassium Chloride (K-Dur 10 Meq Tablet) 10 meq PO BIDWM JOSEPH Last Admin: 04/29/17 08:33 Dose: 10 meq Sodium Chloride (Iv Flush) 10 - 80 ml IVF PRN PRN PRN Reason: Flushing Last Admin: 04/28/17 19:14 Dose: 10 ml Results 04/29/17 05:00 04/29/17 05:00 Cardiac Enzymes 04/28/17 04/28/17 Range/Units 15:13 21:24 Troponin I 0.126 H 0.110 (0-0.12) ng/ml CBC 04/29/17 Range/Units 05:00 WBC 6.2 (4.5-11.0) T/MM3 RBC 4.41 (4.00-5.20) M/MM3 Hgb 12.6 (12-16) GM/DL Hct 38.5 (36-46) % Plt Count 239 (130-400) T/MM3 Comprehensive Metabolic Panel 04/29/17 Range/Units 05:00 Sodium 142 (134-144) MEQ/L Potassium 3.9 (3.6-5) MEQ/L Chloride 104 (98-107) MEQ/L Carbon Dioxide 27 (22-30) MEQ/L BUN 19.0 H (7-17) MG/DL Creatinine 1.3 H D (0.7-1.2) mg/dL Glucose 112 H (65-110) MG/DL Calcium 9.8 (8.4-10.2) MG/DL Intake and Output 04/29/17 04/29/17 04/29/17 06:59 14:59 22:59 Intake Total 650 / 650 720 / 720 Output Total 1200 / 1200 650 / 650 Balance -550 / -550 70 / 70 Intake: Oral 650 / 650 720 / 720 Output: Urine 1200 / 1200 650 / 650 Other: Urine Appearance Clear Clear Urine Color Yellow Yellow Urine Odor Strong # Voids 1 Weight 241 lb 10.026 oz Patient Weight 04/30/17 06:59 Weight 241 lb 10.026 oz Assessment and Plan - Assessment and Plan (1) Elevated troponin Status: Acute (2) Atrial fibrillation with RVR Status: Acute (3) Essential (primary) hypertension Status: Chronic (4) Type 2 diabetes mellitus without complications Status: Chronic - Assessment and Plan 04/28/17 Elevated Troponin: - Trend troponin: 1) <0.0012 2)0.134 - EKG with ST depression in V4, V5, V6 A Fib RVR: Given Labetalol IV with no change in her rhythm. - Verapamil IV at 5 mg with little change followed by Verapamil at 10 mg with a successful drop in rate to 75-100bpm. - Lovenox given. - Converted to SR - Start Sotalol 40mg po BID - Monitor cardiac telemetry - EKG in am or prn rhythm changes HTN: Continue Lasix and KCl 04/29/17 NSTEMI, Type II, likely demand ischemia - Troponin: 1) <0.012 2)0.134 3) 0.126, 4) 0.110 - NPO for LHC at 0800 tomorrow A Fib: Bradycardic and prolonged QT (QTc 496) - Change Sotalol to Flecainide 50mg BID - Continue to monitor on cardiac telemetry. - Monitor renal and electrolytes - EKG in am Hospital Course Summary Disclaimer: The visit summary below is not to be considered part of the above Progress Note. <Arun Patel - Last Filed: 05/05/17 13:40> Exam Vital signs: Temperature 100.2 F 05/01/17 16:55 Pulse Rate 65 05/01/17 16:00 Respiratory Rate 18 05/01/17 11:53 Blood Pressure 168/72 H 05/01/17 16:00 Pulse Oximetry 97 05/01/17 16:00 Inpatient Medications: Discontinued Medications Generic Name Dose Route Start Last Admin Trade Name Freq PRN Reason Stop Dose Admin Acetaminophen 1,000 mg 04/28/17 10:34 05/01/17 16:09 Tylenol PO 1,000 mg Q8H PRN Administration HEAD Acetaminophen 325 - 650 mg 04/30/17 13:39 Tylenol PO Q5H PRN Pain Al Hydroxide/Mg Hydroxide 30 ml 04/30/17 13:39 Maalox Plus PO Q3H PRN Indigestion Amiodarone HCl 400 mg 04/30/17 13:39 05/01/17 08:02 Pacerone PO 05/06/17 21:00 400 mg BID OJSEPH Administration Amiodarone HCl 200 mg 05/07/17 09:00 Pacerone PO DAILY JOSEPH Apixaban 5 mg 04/29/17 21:00 05/01/17 08:00 Eliquis PO 5 mg BID JOSEPH Administration Artificial Tears 1 drop 04/28/17 13:00 05/01/17 16:57 Refresh Classic EACH EYE 1 drop QID JOSEPH Administration Aspirin 324 mg 04/27/17 21:09 04/27/17 21:31 Asa PO 04/27/17 21:10 324 mg O ONE Administration Aspirin 81 mg 04/28/17 21:00 04/30/17 21:08 Ecotrin PO 81 mg HS JOSEPH Administration Aspirin 81 mg 05/01/17 09:00 05/01/17 08:02 Ecotrin PO 81 mg DAILY JOSEPH Administration Atropine Sulfate 0.5 mg 04/30/17 13:39 Atropine IVP Q5M PRN Bradycardia Bisacodyl 5 - 10 mg 04/30/17 13:39 Dulcolax PO DAILY PRN Constipation Bisacodyl 10 mg 04/30/17 13:39 Dulcolax RECTALLY DAILY PRN Constipation Cholecalciferol 1,000 unit 04/29/17 21:00 04/30/17 21:08 Vit. D-3 PO 1,000 unit HS JOSEPH Administration Clopidogrel Bisulfate 75 mg 05/01/17 09:00 05/01/17 08:01 Plavix PO 75 mg DAILY JOSEPH Administration Coenzyme Q10 200 mg 04/29/17 09:00 05/01/17 08:00 Co Q-10 PO 200 mg DAILY [facility] Administration Cyanocobalamin 1,000 mcg 04/30/17 09:00 05/01/17 08:01 Vit. B-12 PO 1,000 mcg DAILY JOSEPH Administration Enoxaparin Sodium 110 mg 04/28/17 09:00 Lovenox SQ DAILY JOSEPH Enoxaparin Sodium 110 mg 04/27/17 22:28 04/27/17 22:33 Lovenox SQ 04/27/17 22:29 110 mg O ONE Administration Enoxaparin Sodium 112 mg 04/28/17 10:00 04/29/17 08:34 Lovenox SQ 112 mg BID JOSEPH Administration Fexofenadine HCl 180 mg 04/28/17 10:45 05/01/17 08:00 Lisbeth PO 180 mg DAILY JOSEPH Administration Flecainide Acetate 50 mg 04/29/17 14:08 04/29/17 14:55 Tambocor PO Not Given BID JOSEPH Flecainide Acetate 50 mg 04/29/17 14:30 04/30/17 08:55 Tambocor PO 50 mg BID JOSEPH Administration Furosemide 20 mg 04/27/17 23:56 04/28/17 00:09 Lasix IVP 04/27/17 23:57 20 mg ONCE ONE Administration Furosemide 20 mg 04/28/17 10:35 05/01/17 16:57 Lasix PO 20 mg [id number] JOSEPH Administration Hydralazine HCl 10 mg 04/30/17 17:30 04/30/17 21:41 Apresoline PO 10 mg WMHS JOSEPH Administration Hydralazine HCl 10 mg 04/30/17 14:49 04/30/17 14:58 Apresoline IVP 04/30/17 14:50 10 mg O ONE Administration Hydralazine HCl 20 mg 05/01/17 08:00 05/01/17 08:34 Apresoline PO Not Given [facility] JOSEPH Hydralazine HCl 10 mg 04/30/17 23:30 05/01/17 03:24 Apresoline IVP 10 mg Q4H PRN Administration Give if Systolic BP > 160 Sodium Chloride 1,000 mls @ 75 mls/hr 04/30/17 08:45 04/30/17 22:32 Normal Saline IV 04/30/17 22:04 Infused .[id number] JOSEPH Infusion Labetalol HCl 5 mg 04/27/17 21:19 04/27/17 21:31 Trandate IVP 04/27/17 21:20 5 mg O ONE Administration Levothyroxine Sodium 137 mcg 04/29/17 09:00 05/01/17 08:00 Synthroid PO 137 mcg DAILY JOSEPH Administration Lorazepam 0.5 - 1 mg 04/30/17 13:39 Ativan PO Q4H PRN Anxiety Lorazepam 0.5 - 1 mg 04/30/17 13:39 05/01/17 05:05 Ativan Inj IVP 0.5 mg Q4H PRN Administration Anxiety Magnesium Hydroxide 30 ml 04/30/17 13:39 Mom PO DAILY PRN Constipation Metoclopramide HCl 5 - 10 mg 04/30/17 13:39 Reglan IVP Q6H PRN Nausea &/or vomiting Metoprolol Tartrate 25 mg 04/27/17 23:48 04/28/17 09:04 Lopressor PO Not Given BIDWM JOSEPH Minoxidil 5 mg 05/01/17 09:45 05/01/17 10:26 Loniten PO 5 mg DAILY JOSEPH Administration Nitroglycerin 0.4 mg 04/30/17 13:39 Nitrostat SL Q5M PRN Angina Ferrous Sulfate [ 65 mg 04/29/17 09:00 05/01/17 08:34 Iron] 65 Mg - Pt Own PO 65 mg DAILY JOSEPH Administration Turmeric Complex 500 500 mg 04/28/17 21:00 - Pt Own PO HS JOSEPH Vitamin B-12 Tab 1, 1,000 mcg 04/29/17 09:00 000mcg - Pt Own PO DAILY JOSEPH Vitamin B-12 Tab 1, 1,000 mcg 04/29/17 09:00 04/29/17 08:37 000mcg - Pt Own PO 1,000 mcg DAILY JOSEPH Administration Ondansetron HCl 4 mg 04/30/17 13:39 Zofran IVP Q6H PRN Nausea &/or vomiting Potassium Chloride 10 meq 04/28/17 17:30 05/01/17 16:57 K-Dur 10 Meq Tablet PO 10 meq BIDWM JOSEPH Administration Promethazine HCl 12.5 - 25 mg 04/30/17 13:39 Phenergan Inj IVP Q6HR PRN Nausea &/or vomiting Sodium Chloride 10 - 80 ml 04/27/17 21:09 04/28/17 19:14 Iv Flush IVF 10 ml PRN PRN Administration Flushing Sotalol HCl 40 mg 04/28/17 08:38 04/29/17 09:59 Betapace PO 40 mg ACBID JOSEPH Administration Verapamil HCl 5 mg 04/27/17 21:41 04/27/17 21:47 Verapamil IVP 04/27/17 21:42 5 mg O ONE Administration Protocol Verapamil HCl 10 mg 04/27/17 22:05 04/27/17 22:10 Verapamil IVP 04/27/17 22:06 10 mg O ONE Administration Protocol Results 05/01/17 04:23 05/01/17 04:23 Assessment and Plan - Assessment and Plan (1) Elevated troponin Status: Acute (2) Atrial fibrillation with RVR Status: Acute (3) Essential (primary) hypertension Status: Chronic (4) Type 2 diabetes mellitus without complications Status: Chronic - Attestation Attestation Narrative: 05/05/17 13:40 Recommendation After examining the patient I agree with the above assessment. I am involved in the formulation of the patient's plan of care. Hospital Course Summary Disclaimer: The visit summary below is not to be considered part of the above Progress Note.
[2017-04-29] MEDS: ASPIRIN *EC* 81 MG TABLET PO SCH (20:42)
[2017-04-29] MEDS: APIXABAN 5 MG TABLET PO SCH (20:42)
[2017-04-30] MEDS: FEXOFENADINE 180 MG TABLET PO SCH (08:43)
[2017-04-30] MEDS: APIXABAN 5 MG TABLET PO SCH ×2 (08:43→21:07)
[2017-04-30] MEDS: COENZYME Q-10 200mg TABLET PO SCH (08:43)
[2017-04-30] MEDS: FUROSEMIDE 20 MG TAB PO SCH ×2 (08:43→16:48)
[2017-04-30] MEDS: VITAMIN B12 1000 MCG PO SCH (08:43)
[2017-04-30] MEDS: FERROUS SULFATE 65 MG PO SCH (08:43)
[2017-04-30] MEDS: POTASSIUM CHLORIDE 10 MEQ PO SCH ×2 (08:43→16:47)
[2017-04-30] MEDS ORDERED: NS 1,000 ML IV SCH (08:45)
[2017-04-30] MEDS: LEVOTHYROXINE 137 MCG TAB PO SCH (08:54)
[2017-04-30] MEDS: FLECAINIDE 50 MG TABLET PO SCH (08:55)
[2017-04-30] MEDS: REFRESH CLASSIC Eye Drops 0.4ml EACH EYE SCH ×4 (08:56→21:17)
[2017-04-30] MEDS ORDERED: HEPARIN 1,000 UNITS/500 ML PREMIX (*CVL ONLY*) IV ONE (12:09)
[2017-04-30] MEDS ORDERED: LIDOCAINE 1% (10mg/ml) 30ml SDV INJ ONE (12:09)
[2017-04-30] MEDS ORDERED: Verapamil 5 MG/2 ML VIAL ONE (12:18)
[2017-04-30] MEDS ORDERED: NITROGLYCERIN 50MG INJECTION IV ONE (12:18)
[2017-04-30] MEDS ORDERED: HEPARIN 1,000unit/ml INJECTION 10ml ONE (12:19)
[2017-04-30] MEDS ORDERED: MIDAZOLAM 2mg/2ml INJECTION ONE (12:50)
[2017-04-30] MEDS ORDERED: FentaNYL 100 MCG/2 ML INJECTION ONE (12:50)
[2017-04-30] MEDS ORDERED: CLOPIDOGREL 75 MG TABLET ONE (13:13)
[2017-04-30] MEDS ORDERED: ASPIRIN 325 MG TABLET ONE (13:14)
[2017-04-30] MEDS ORDERED: MAG-AL + SIM ORAL LIQUID 30ml PO PRN (13:39)
[2017-04-30] MEDS ORDERED: NITROGLYCERIN 0.4 MG SUBLINGUAL TABLET SL PRN (13:39)
[2017-04-30] MEDS ORDERED: ACETAMINOPHEN 325 MG TABLET PO PRN (13:39)
[2017-04-30] MEDS ORDERED: Bisacodyl EC TAB 5 MG TABLET PO PRN (13:39)
[2017-04-30] MEDS ORDERED: METOCLOPRAMIDE 10mg/2ml INJECTION IVP PRN (13:39)
[2017-04-30] MEDS ORDERED: BISACODYL 10 MG SUPPOSITORY RECTALLY PRN (13:39)
[2017-04-30] MEDS ORDERED: PROMETHAZINE 25 MG INJECTION IVP PRN (13:39)
[2017-04-30] MEDS ORDERED: ATROPINE 1 MG/ML INJECTION IVP PRN (13:39)
[2017-04-30] MEDS ORDERED: LORazepam 0.5 MG TABLET PO PRN (13:39)
[2017-04-30] MEDS ORDERED: ONDANSETRON 4 MG/2 ML INJECTION IVP PRN (13:39)
[2017-04-30] MEDS: AMIODARONE 200 MG TABLET PO SCH ×2 (14:01→21:08)
--- NOTE | 2017-04-30 14:39 | Cardiac Catheterization Report ---
DATE OF PROCEDURE April 30, [address] Mary Lou Mayorga The patient is a pleasant 81-year-old lady who was admitted with atrial fibrillation with rapid ventricular rate and chest pain and was ruled in for a [id number] myocardial infarction with abnormal EKG and ST depressions and was referred for further evaluation by cardiac catheterization and possible intervention. Informed consent was obtained after explaining the procedure and the potential risks to the patient and family who agreed to proceed with the procedure. PROCEDURE 1. Left heart catheterization. 2. Coronary angiography. 3. Left ventriculography. 4. Primary stent of left circumflex artery using a 2.75 x 12 drug-eluting Resolute Ogden stent. TECHNIQUE She was prepped and draped in the usual sterile techniques. Conscious sedation was performed using Versed and fentanyl. 1% lidocaine was used for local anesthesia. Using modified Seldinger technique, arterial access was obtained into the right radial artery with placement of a 6-Bhutanese arterial sheath. 3000 units of heparin and 400 mcg of nitroglycerin were given through the arterial sheath. Additional 5000 units of heparin was administered prior to intervention. During the procedure the patient received additional 400 units of nitroglycerin into the right radial sheath. LEFT VENTRICULOGRAPHY Left ventriculography in single-plane MCNAIR shallow projection showed normal LV systolic function with ejection fraction of about 65% with no mitral regurgitation or gradient across the aortic valve. LVEDP was about 23. CORONARY ANGIOGRAPHY Left main was diffusely diseased with up to about 20% stenosis but no hemodynamically significant lesions. It bifurcated into left anterior descending and left circumflex arteries. Left anterior descending artery was diseased throughout with bumpy lesions all along the LAD with about 30% stenosis. First diagonal was also bumpy with about 30% stenosis. A caudal branch of the diagonal was small in the range of 1.5 mm diameter with 80% stenosis. Left circumflex artery had about 80% stenosis at the junction of the first marginal. The rest of the circumflex and marginals was diffusely diseased of up to about 30%. Right coronary artery was again diffusely diseased and bumpy and showed up to 30% stenosis. After reviewing the images we decided to proceed with intervention on left circumflex artery. A 6-Bhutanese BioCatch left guide was advanced to the ostium of left main. A Runthrough was used to cross the lesion into distal circumflex. A 2.75 x 12 drug-eluting Resolute [place] stent was delivered to the lesion site where it was deployed by inflating the balloon to 18 atmospheres. Next, angiogram showed excellent results with no residual stenosis. First marginal appeared to be somewhat compromised at the ostium but it appeared to have blood flow and therefore we did not wish to proceed with any further intervention. The patient tolerated the procedure well with no complications. IMPRESSION 1. Coronary artery disease as described above. 2. Normal LV systolic function with ejection fraction of about 65%. 3. Successful primary stent of left circumflex artery using a 2.75 x 12 drug- eluting Resolute [place] stent. PLAN Will keep her on dual antiplatelet therapy at least for year and continue risk modification. LUIS
[2017-04-30] MEDS ORDERED: HYDRALAZINE 20 MG/ML INJECTION IVP ONE (14:49)
--- NOTE | 2017-04-30 15:06 | Progress Note ---
<Amarilys Thomas - Last Filed: 04/30/17 15:15> Progress Note: 04/30/17 - Lucrecia underwent cardiac catheterization to day with placement of stent. See report - Started on Plavix and Aspirin for dual antiplatelet therapy - Intolerant of multiple Statin drugs, will teach and start Repatha at clinic follow up - Due to diagnosis of CAD, will change Flecainide to Amiodarone 400mg BID for 1 week followed by 200mg daily. - Monitor overnight on cardiac telemetry for arrhythmias of immediate concern. - EKG in am - Suboptimal control of BP, Hydralazine 10mg IV X1 and Hydralazine 10mg PO QID <Arun Patel - Last Filed: 05/06/17 07:41> Progress Note: Recommendation After examining the patient I agree with the above assessment. I am involved in the formulation of the patient's plan of care.
[2017-04-30] MEDS: ACETAMINOPHEN 500 MG TABLET PO PRN (16:09)
[2017-04-30] MEDS: HYDRALAZINE 10 MG TABLET PO SCH ×4 (16:47→23:33)
[2017-04-30] MEDS: ASPIRIN *EC* 81 MG TABLET PO SCH (21:08)
[2017-04-30] MEDS ORDERED: HYDRALAZINE 20 MG/ML INJECTION IVP PRN (23:30)
[2017-05-01 07:12] VITALS: RESP 18; O2SAT 97
[2017-05-01] MEDS: LEVOTHYROXINE 137 MCG TAB PO SCH (08:00)
[2017-05-01] MEDS: COENZYME Q-10 200mg TABLET PO SCH (08:00)
[2017-05-01] MEDS: APIXABAN 5 MG TABLET PO SCH (08:00)
[2017-05-01] MEDS: FEXOFENADINE 180 MG TABLET PO SCH (08:00)
[2017-05-01] MEDS: REFRESH CLASSIC Eye Drops 0.4ml EACH EYE SCH ×3 (08:00→16:57)
[2017-05-01] MEDS: POTASSIUM CHLORIDE 10 MEQ PO SCH ×2 (08:01→16:57)
[2017-05-01] MEDS: VITAMIN B12 1000 MCG PO SCH (08:01)
[2017-05-01] MEDS: FUROSEMIDE 20 MG TAB PO SCH ×2 (08:01→16:57)
[2017-05-01] MEDS: AMIODARONE 200 MG TABLET PO SCH (08:02)
[2017-05-01] MEDS: ACETAMINOPHEN 500 MG TABLET PO PRN ×2 (08:32→16:09)
[2017-05-01] MEDS: FERROUS SULFATE 65 MG PO SCH (08:34)
[2017-05-01] MEDS: HYDRALAZINE 10 MG TABLET PO SCH (08:34)
[2017-05-01] MEDS ORDERED: CLOPIDOGREL 75 MG TABLET PO SCH (09:00)
[2017-05-01] MEDS ORDERED: ASPIRIN *EC* 81 MG TABLET PO SCH (09:00)
[2017-05-01] MEDS ORDERED: MINOXIDIL 2.5 MG TABLET PO SCH (09:45)
[2017-05-01 16:12] VITALS: BP 168/72; PULSE 65
--- NOTE | 2017-05-01 16:44 | Consult Note ---
Consult Information - Data of Consult Consult date: 05/01/17 Requesting Physician: Arun Patel MD Primary Care Provider: Mary Lou Mayorga MD Family Provider: Mary Lou Mayorga MD - Consult Narrative Reason for consult: malaise headache and nausea History of present illness: 81-year-old woman has been in hospital for 3 days has had sudden symptoms of headache malaise aches and chills. Nausea vomiting or diarrhea. Family members have not been sick contacts she has been in the hospital 72 to hours. Been screened out for any cardiac issues at this time and medications been optimized. Past Medical History Surgical History: Radial Keratotomy bilateral eyes. cholecystectomy 1994-- Jennifer. Breast surgery--benign cysts--Dr. Jara. Knee replacement 03/30 left ; 08/27 right--Dr. Sánchez. Bone Marrow Biopsy--Dr. Randhawa. Colonoscopy 06/08/14-- [place]. Laser pressure reduction--R eye 10/21/13, Left eye, 10/28/13. Cataract removal L 01/24/14; R 04/04/14 Family History Updates: Discussed and no further information of any value - Social History Smoking status: Never smoker Substance use type: does not use Alcohol intake frequency: does not drink Current residence: Apartment/Private Home Review of Systems All systems PM: 10-point ROS was reviewed, no additional remarkable complaints except Medications Home Medications Medication Instructions Recorded Confirmed Type Aspirin [Aspir 81] 81 mg PO HS #0 06/07/13 04/27/17 History Cholecalciferol (Vitamin D3) 1,000 unit PO HS #0 06/07/13 04/27/17 History (Vitamin D3) Metformin HCl 500 mg PO BID #0 06/07/13 04/27/17 History Carboxymethylcellulos/Glycerin 1 drop BOTH EYES QID #0 07/07/15 04/27/17 History [Refresh Optive Eye Drops] Fexofenadine HCl 180 mg PO DAILY #0 07/07/15 04/27/17 History Levothyroxine Sodium 137 mcg PO DAILY #0 07/07/15 04/27/17 History Acetaminophen 2 tab PO Q8H PRN #0 07/14/15 04/27/17 History Potassium Chloride 10 meq PO BID #0 07/14/15 04/28/17 History Vitamin B-12 1,000 mcg PO DAILY 04/27/17 04/27/17 History Ferrous Sulfate [Iron] 65 mg PO DAILY 04/28/17 04/28/17 History Furosemide [Lasix] 1 tab PO BID 04/28/17 04/28/17 History Turmeric/Turmeric Ext/Pepr Ext 500 mg PO HS 04/28/17 04/28/17 History [Turmeric Complex 500 mg Cap] Ubidecarenone [Co Q-10] 100 mg PO DAILY 04/28/17 04/28/17 History Allergies Allergy/AdvReac Type Severity Reaction Status Date / Time amlodipine Allergy Severe EDEMA Verified 04/28/17 07:18 diltiazem Allergy Intermediate ACHY Verified 04/28/17 07:18 MUSCLES & WEAKNESS doxazosin Allergy Intermediate ITCHING Verified 04/28/17 07:18 doxepin Allergy Intermediate WEIRD Verified 04/28/17 07:18 DREAMS lisinopril Allergy Intermediate ACHY Verified 04/28/17 07:18 MUSCLES & WEAKNESS losartan Allergy Intermediate ACHY Verified 04/28/17 07:18 MUSCLES & WEAKNESS pitavastatin Allergy Intermediate ACHY Verified 04/28/17 07:18 MUSCLES & WEAKNESS hydromorphone Allergy Mild NAUSEA Verified 04/28/17 07:18 [id number] Reductase Allergy Unknown Verified 04/28/17 07:18 Inhibitor hydrocodone AdvReac Unknown NAUSEA Verified 04/28/17 07:18 Exam Vital Signs: Temperature 100.4 F 05/01/17 16:00 Pulse Rate 65 05/01/17 16:00 Respiratory Rate 18 05/01/17 11:53 Blood Pressure 168/72 H 05/01/17 16:00 Pulse Oximetry 97 05/01/17 16:00 Height/Weight/BMI: Weight 109.8 kg - Constitutional Present: well nourished, well developed, obese - Routine HEENT Exam Head: Present: normocephalic, atraumatic Eye: Present: EOMI, PERRL, normal accommodation ENT: Present: mucous membranes moist, oropharynx clear, dentition normal, nares patent - Routine Neck Exam Present: supple, full ROM. Absent: JVD, lymphadenopathy - Routine Respiratory Exam Present: CTA bilaterally. Absent: accessory muscle use, wheezes - Routine Cardiovascular Exam Present: S1, S2, murmur - Routine Abdominal Exam Present: soft, normoactive bowel sounds, non distended. Absent: tenderness - Routine Extremities Exam Present: normal capillary refill. Absent: edema - Routine Skin Exam Present: dry, warm - Routine Neurological Exam Present: alert, oriented X3, CN II-XII intact - Routine Psychiatric Exam Present: normal affect Results - Labs CBC & Chem 7: 05/01/17 04:23 05/01/17 04:23 - ABG Interpretation ABG results: 04/30/17 18:23 ABG pH 7.470 H ABG pCO2 33 L ABG pO2 72.5 L ABG HCO3 23.8 ABG Total CO2 24.8 ABG O2 Saturation 95.5 ABG Base Excess 0.7 Assessment and Plan (1) Fever Current visit: Yes Status: Acute Assessment and Plan: Lab work is been re assuring and a temperature of 100.4 that is responsive to Tylenol could be managed at home. Patient does not appear to have any focus of infection at this time. As there is a fairly high amount of flu and RSV this found its way into the older population in the area I'm screening for both of these. As I think that even positives for this would not be indication to stay in hospital any further, the patient can be discharged as soon as the influenza titer returns negative. Tamiflu can be ordered based upon the finding - Physician Narrative Narrative: Date: 05/01/17 Time: 1640 Hospital Course Summary Disclaimer: The visit summary below is not to be considered part of the above Progress Note.
[2017-05-01 16:55] VITALS: TEMP 100.2
--- NOTE | 2017-05-01 17:34 | Discharge Summary ---
<Amarilys Thomas - Last Filed: 05/04/17 14:39> Discharge Information Date of admission: 04/28/17 11:31 Anticipated date of discharge: 05/01/17 Attending Physician: Arun Patel MD Primary care physician: Mary Lou Mayorga MD Consults: 04/30/17 13:39 Outpt Cardiac Rehab Consult [CONS] Routine 05/01/17 17:26 Physician Consult [CONS] Routine Consulting Provider: Salvador Shah Reason For Exam: nausea Ordering Provider has Notified Lamp Inspector: Yes Comment: thank you - Discharge Diagnosis (1) Elevated troponin Status: Acute (2) Atrial fibrillation with RVR Status: Acute (3) Essential (primary) hypertension Status: Chronic (4) Type 2 diabetes mellitus without complications Status: Chronic Atrial fibrillation, CAD, HTN - Procedures Procedures: Date of Exam: 04/30/17 Type of Exam(s): CA heart cath LT DATE OF PROCEDURE April 30, [address] Mary Lou Mayorga The patient is a pleasant 81-year-old lady who was admitted with atrial fibrillation with rapid ventricular rate and chest pain and was ruled in for a [id number] myocardial infarction with abnormal EKG and ST depressions and was referred for further evaluation by cardiac catheterization and possible intervention. Informed consent was obtained after explaining the procedure and the potential risks to the patient and family who agreed to proceed with the procedure. PROCEDURE 1. Left heart catheterization. 2. Coronary angiography. 3. Left ventriculography. 4. Primary stent of left circumflex artery using a 2.75 x 12 drug-eluting Resolute [place] stent. TECHNIQUE She was prepped and draped in the usual sterile techniques. Conscious sedation was performed using Versed and fentanyl. 1% lidocaine was used for local anesthesia. Using modified Seldinger technique, arterial access was obtained into the right radial artery with placement of a 6-[place] arterial sheath. 3000 units of heparin and 400 mcg of nitroglycerin were given through the arterial sheath. Additional 5000 units of heparin was administered prior to intervention. During the procedure the patient received additional 400 units of nitroglycerin into the right radial sheath. LEFT VENTRICULOGRAPHY Left ventriculography in single-plane MCNAIR shallow projection showed normal LV systolic function with ejection fraction of about 65% with no mitral regurgitation or gradient across the aortic valve. LVEDP was about 23. CORONARY ANGIOGRAPHY Left main was diffusely diseased with up to about 20% stenosis but no hemodynamically significant lesions. It bifurcated into left anterior descending and left circumflex arteries. Left anterior descending artery was diseased throughout with bumpy lesions all along the LAD with about 30% stenosis. First diagonal was also bumpy with about 30% stenosis. A caudal branch of the diagonal was small in the range of 1.5 mm diameter with 80% stenosis. Left circumflex artery had about 80% stenosis at the junction of the first marginal. The rest of the circumflex and marginals was diffusely diseased of up to about 30%. Right coronary artery was again diffusely diseased and bumpy and showed up to 30% stenosis. After reviewing the images we decided to proceed with intervention on left circumflex artery. A 6-[place]ian Solarcentury left guide was advanced to the ostium of left main. A Runthrough was used to cross the lesion into distal circumflex. A 2.75 x 12 drug-eluting Resolute Phil stent was delivered to the lesion site where it was deployed by inflating the balloon to 18 atmospheres. Next, angiogram showed excellent results with no residual stenosis. First marginal appeared to be somewhat compromised at the ostium but it appeared to have blood flow and therefore we did not wish to proceed with any further intervention. The patient tolerated the procedure well with no complications. IMPRESSION 1. Coronary artery disease as described above. 2. Normal LV systolic function with ejection fraction of about 65%. 3. Successful primary stent of left circumflex artery using a 2.75 x 12 drug- eluting Resolute [place] stent. PLAN Will keep her on dual antiplatelet therapy at least for year and continue risk modification. - Laboratory Labs: 05/01/17 04:23 05/01/17 04:23 History of Present Illness HPI: Ayana is a 81 female who presented with chest pressure which started last evening while pt was eating a salad for supper. She reports the feeling of someone standing on her chest, followed by shortness of breath. She took one baby aspirin and her 's SL Nitro and tried to lay down to rest. At that point , she began to feel her heart rate pounding in her chest, neck and head and the chest pressure continued. Her daughters then brought her to the ER. She denies nausea, vomiting or diaphoresis. Dr. Patel was contacted for observation admission for further evaluation. She is examined in her room on Medical. She denies recent illness, fever, chills , cough, sore throat, dyspnea, N/V/D, dysuria. Hospital Course This is a general summary of the patient's hospital course. For more details refer to the complete medical record. Hospital course: 04/28/17 Elevated Troponin: - Trend troponin: 1) <0.0012 2)0.134 - EKG with ST depression in V4, V5, V6 A Fib RVR: Given Labetalol IV with no change in her rhythm. - Verapamil IV at 5 mg with little change followed by Verapamil at 10 mg with a successful drop in rate to 75-100bpm. - Lovenox given. - Converted to SR - Start Sotalol 40mg po BID - Monitor cardiac telemetry - EKG in am or prn rhythm changes HTN: Continue Lasix and KCl 04/29/17 NSTEMI, Type II, likely demand ischemia - Troponin: 1) <0.012 2)0.134 3) 0.126, 4) 0.110 - NPO for LHC at 0800 tomorrow A Fib: Bradycardic and prolonged QT (QTc 496) - Change Sotalol to Flecainide 50mg BID - Continue to monitor on cardiac telemetry. - Monitor renal and electrolytes - EKG in am 04/30/17 - Lucrecia underwent cardiac catheterization to day with placement of stent. See report - Started on Plavix and Aspirin for dual antiplatelet therapy - Intolerant of multiple Statin drugs, will teach and start Repatha at clinic follow up - Due to diagnosis of CAD, will change Flecainide to Amiodarone 400mg BID for 1 week followed by 200mg daily. - Monitor overnight on cardiac telemetry for arrhythmias of immediate concern. - EKG in am - Suboptimal control of BP, Hydralazine 10mg IV X1 and Hydralazine 10mg PO QID 05/01/17 Reported headache and nausea caused by Hydralazine. - D/c Hydralazine, start Minoxidil 5mg daily - Consult to hospitalist due to headache and nausea, flu panel obtained. Time spent with patient: greater than 35 minutes Resuscitation Status: Full Code Exam Vital signs: Temperature 100.2 F 05/01/17 16:55 Pulse Rate 65 05/01/17 16:00 Respiratory Rate 18 05/01/17 11:53 Blood Pressure 168/72 H 05/01/17 16:00 Pulse Oximetry 97 05/01/17 16:00 - Constitutional no acute distress, well nourished, cooperative - Routine HEENT Exam Head: Present: normocephalic ENT: Present: mucous membranes moist - Routine Neck Exam Absent: JVD, carotid bruit - Routine Chest/Breast/Axilla Exam Chest wall: Absent: tenderness - Routine Respiratory Exam Present: CTA bilaterally. Absent: dyspnea, rales, wheezes, crackles - Routine Cardiovascular Exam Present: RRR, no murmur - Routine Abdominal Exam Present: soft, normoactive bowel sounds - Routine Extremities Exam Present: no edema - Routine Skin Exam Present: intact, dry, warm - Routine Neurological Exam Present: alert, oriented X3 - Routine Psychiatric Exam Present: normal affect, normal thought process Results 05/01/17 04:23 05/01/17 04:23 Lipids 05/01/17 Range/Units 04:23 Triglycerides 309 H (35-135) mg/dL Cholesterol 220 H (132-199) mg/dL HDL Cholesterol 23 L (40-60) mg/dL Cholesterol/HDL Ratio 9.6 H (0-4.0) RATIO CBC 05/01/17 Range/Units 04:23 WBC 5.3 (4.5-11.0) T/MM3 RBC 4.40 (4.00-5.20) M/MM3 Hgb 12.6 (12-16) GM/DL Hct 38.1 (36-46) % Plt Count 217 (130-400) T/MM3 Neut # (Auto) 3.7 (1.8-7.7) T/MM3 Lymph # (Auto) 1.0 (1-4.8) T/MM3 [place] # (Auto) 0.4 (0-0.8) T/MM3 Eos # (Auto) 0.2 (0-0.5) T/MM3 Baso # (Auto) 0.0 (0-0.2) T/MM3 Comprehensive Metabolic Panel 05/01/17 Range/Units 04:23 Sodium 139 (134-144) MEQ/L Potassium 3.7 (3.6-5) MEQ/L Chloride 104 (98-107) MEQ/L Carbon Dioxide 23 (22-30) MEQ/L BUN 14.0 (7-17) MG/DL Creatinine 1.1 D (0.7-1.2) mg/dL Glucose 127 H (65-110) MG/DL Calcium 9.7 (8.4-10.2) MG/DL Intake and Output 05/01/17 05/01/17 05/01/17 06:59 14:59 22:59 Intake Total 650 / 650 450 / 450 Output Total 450 / 450 Balance 200 / 200 450 / 450 Intake: Oral 650 / 650 450 / 450 Output: Urine 450 / 450 Other: Urine Appearance Clear Urine Color Yellow # Voids 1 1 Weight 242 lb 1.081 oz Patient Weight 05/02/17 06:59 Weight 242 lb 1.081 oz - Imaging and Cardiology Imaging & Cardiology Narrative: Date of Exam: 04/28/17 Type of Exam(s): US echo doppler complete DATE OF PROCEDURE April 28, 2017 This is a two-dimensional echo with spectral Doppler, color-flow and M-mode. It was obtained in a patient with atrial fibrillation. Left atrium is dilated. Left ventricular end-diastolic dimension is normal. Left ventricular wall thickness is normal. LV systolic function is normal with ejection fraction of 70%. Right atrium is dilated. Right ventricle is normal. Aortic root dimension is normal. Mitral valve annulus is calcified. Mitral valve leaflets are normal with trace of mitral regurgitation. Aortic valve shows mild fibrocalcific changes with no stenosis. Mild aortic insufficiency is present. Tricuspid valve shows [id number] tricuspid regurgitation with normal estimated pulmonary artery systolic pressure of 28. Pulmonary valve shows mild pulmonary insufficiency. There is no pericardial effusion. IMPRESSION 1. Normal LV systolic function with ejection fraction of 70%. 2. Biatrial dilation. 3. Mitral annulus calcification with trace of mitral regurgitation. 4. Aortic sclerosis with mild aortic insufficiency. 5. [id number] tricuspid regurgitation with normal estimated pulmonary artery systolic pressure of 28. 6. Mild pulmonary insufficiency. 05/01/17 17:31 05/01/17 17:32 Date of Exam: 04/27/17 Ordering Provider: Maritza Rashid APRN Type of Exam(s): XR chest 1V Reason for Exam(s): chest pain, a fib Indication: chest pain, a fib PROCEDURE: XR chest 1V: Encounter: Initial Comparison: October 21, 2016 Findings: The lungs are stable in appearance without new focal airspace consolidation. There is no pleural effusion or pneumothorax. The heart size, pulmonary vascularity and mediastinal contours are unchanged. IMPRESSION: Stable appearance of the chest without acute cardiopulmonary disease. - EKG Interpretation EKG: sinus rhythm Discharge Plan - Med Rec/Dispo Referrals/Follow Up: Arun Patel MD [Physician] - 2 Weeks [place] Instructions: A-fib (Atrial Fibrillation) (DC) Prescriptions: New Amiodarone [Pacerone] 200 mg PO DAILY #30 tab Clopidogrel [Plavix] 75 mg PO DAILY #30 tab Minoxidil [Loniten] 5 mg PO DAILY #60 tab Nitroglycerin [Nitrostat] 0.4 mg SL Q5M PRN #25 tab PRN Reason: Angina Continue Ferrous Sulfate [Iron] 325 mg PO DAILY Carboxymethylcellulos/Glycerin [Refresh Optive Eye Drops] 1 drop BOTH EYES BID PRN #0 PRN Reason: Prn Orders Furosemide [Lasix 20 mg Tab] 40 mg PO DAILY No Action Cyanocobalamin (Vitamin B-12) [Vitamin B-12] 1,000 mcg PO DAILY Potassium Chloride 10 meq PO BID Levothyroxine Sodium 150 mcg PO ACB Acetaminophen [Acetaminophen Extra Strength] 1,000 mg PO Q4H PRN PRN Reason: Pain Fexofenadine [Lisbeth] 180 mg PO DAILY Metformin [Glucophage] 500 mg PO BID Cholecalciferol (Vitamin D3) [Vitamin D3] 1,000 unit PO HS Lactobacillus Acidophilus [Probiotic] 1 cap PO DAILY Pantoprazole Tab [Protonix Tab] 40 mg PO ACBID #60 tab Sucralfate [Carafate] 0 gm PO ACHS #120 tab Aspirin [Aspirin EC] 81 mg PO HS - Disposition 01 Discharged Home, Self-Care - Dismissal Complete Discharge Instructions are:: Complete <Arun Patel - Last Filed: 05/13/17 12:30> Discharge Information Date of admission: 04/28/17 11:31 Attending Physician: Arun Patel MD Primary care physician: Mary Lou Mayorga MD Consults: 04/30/17 13:39 Outpt Cardiac Rehab Consult [CONS] Routine 05/01/17 17:26 Physician Consult [CONS] Routine Consulting Provider: Salvador Shah Reason For Exam: nausea Ordering Provider has Notified Lamp Inspector: Yes Comment: thank you - Discharge Diagnosis (1) Elevated troponin Status: Acute (2) Atrial fibrillation with RVR Status: Acute (3) Essential (primary) hypertension Status: Chronic (4) Type 2 diabetes mellitus without complications Status: Chronic - Laboratory Labs: 05/01/17 04:23 05/01/17 04:23 Hospital Course This is a general summary of the patient's hospital course. For more details refer to the complete medical record. Exam Vital signs: Temperature 100.2 F 05/01/17 16:55 Pulse Rate 65 05/01/17 16:00 Respiratory Rate 18 05/01/17 11:53 Blood Pressure 168/72 H 05/01/17 16:00 Pulse Oximetry 97 05/01/17 16:00 Results 05/01/17 04:23 05/01/17 04:23 Attestation Narriative - Attestation Attestation Narrative: 05/13/17 12:30 Recommendation After examining the patient I agree with the above assessment. I am involved in the formulation of the patient's plan of care.
[2017-05-07] MEDS ORDERED: AMIODARONE 200 MG TABLET PO SCH (09:00)
== END 2017-05-01 18:45 | disposition home or self-care (01) | DRG 247 ==
LOC: SRG 21:05 → ED 21:05 → SRG 22:50
PROVIDERS: ADMIT Internal Medicine Cardiovascular Disease; ATTEND Internal Medicine Cardiovascular Disease

== ENCOUNTER 2017-05-08 10:27 | Inpatient (IN) ==
--- NOTE | 2017-05-08 10:48 | Emergency Department Report ---
General Adult HPI - General Chief complaint: Abdominal Pain Stated complaint: severe abd pain,tarry stools Time Seen by Provider: 05/08/17 10:43 Source: patient Mode of arrival: ambulatory Limitations: no limitations - History of Present Illness HPI narrative: 81-year-old female presents to the emergency department with a chief complaint of epigastric abdominal pain and dark tarry stools. She was recently discharged home following a heart cath after which she was started on Eliquis and Plavix. Pain is moderate. Pain is dull. No radiation. She denies any trauma, travel, poorly prepared food, or recent antibiotic use. She was at home when her symptoms began 1 day ago. Symptoms have been persistent in nature since onset. She has no other complaints or associated symptoms. She does not note any exacerbating or remitting factors. Her last colonoscopy/EGD was performed in 2013. - Related Data Home Medications Medication Instructions Recorded Confirmed Carboxymethylcellulos/Glycerin 1 drop BOTH EYES BID PRN #0 07/07/15 05/08/17 [Refresh Optive Eye Drops] Ferrous Sulfate [Iron] 325 mg PO DAILY 04/28/17 05/08/17 Furosemide [Lasix 20 mg Tab] 40 mg PO DAILY 04/28/17 05/08/17 Turmeric/Turmeric Ext/Pepr Ext 500 mg PO HS 04/28/17 05/08/17 [Turmeric Complex 500 mg Cap] Acetaminophen [Acetaminophen Extra 1,000 mg PO Q4H PRN 05/08/17 05/08/17 Strength] Aspirin [Aspirin EC] 81 mg PO HS 05/08/17 05/08/17 Cholecalciferol (Vitamin D3) 1,000 unit PO HS 05/08/17 05/08/17 [Vitamin D3] Cyanocobalamin (Vitamin B-12) 1,000 mcg PO DAILY 05/08/17 05/08/17 [Vitamin B-12] Fexofenadine [Lisbeth] 180 mg PO DAILY 05/08/17 05/08/17 Lactobacillus Acidophilus 1 cap PO DAILY 05/08/17 05/08/17 [Probiotic] Levothyroxine Sodium 150 mcg PO ACB 05/08/17 05/08/17 Metformin [Glucophage] 500 mg PO BID 05/08/17 05/08/17 Potassium Chloride 10 meq PO BID 05/08/17 05/08/17 Ubidecarenone/Vit E Acet [Co Q-10 100 mg PO DAILY 05/08/17 05/08/17 100 mg Softgel] Previous Rx's Medication Instructions Recorded Amiodarone [Pacerone] 200 mg PO DAILY #30 tab 05/01/17 Apixaban [Eliquis] 5 mg PO BID #60 tab 05/01/17 Clopidogrel [Plavix] 75 mg PO DAILY #30 tab 05/01/17 Minoxidil [Loniten] 5 mg PO DAILY #60 tab 05/01/17 Nitroglycerin [Nitrostat] 0.4 mg SL Q5M PRN #25 tab 05/01/17 Allergies Allergy/AdvReac Type Severity Reaction Status Date / Time amlodipine Allergy Severe EDEMA Verified 05/08/17 10:49 diltiazem Allergy Intermediate ACHY Verified 05/08/17 10:49 MUSCLES & WEAKNESS doxazosin Allergy Intermediate ITCHING Verified 05/08/17 10:49 doxepin Allergy Intermediate WEIRD Verified 05/08/17 10:49 DREAMS lisinopril Allergy Intermediate ACHY Verified 05/08/17 10:49 MUSCLES & WEAKNESS losartan Allergy Intermediate ACHY Verified 05/08/17 10:49 MUSCLES & WEAKNESS pitavastatin Allergy Intermediate ACHY Verified 05/08/17 10:49 MUSCLES & WEAKNESS hydromorphone Allergy Mild NAUSEA Verified 05/08/17 10:49 Lpwobct-Sjg-Fef Reductase Allergy Unknown Verified 05/08/17 10:49 Inhibitor hydrocodone AdvReac Unknown NAUSEA Verified 05/08/17 10:49 Review of Systems Constitutional: Denies: fever, chills Eyes: Denies: eye pain, vision change ENT: Denies: ear pain, throat pain Cardiovascular: Denies: chest pain, palpitations Respiratory: Denies: cough, dyspnea Gastrointestinal: Reports: abdominal pain, melena. Denies: nausea, vomiting, diarrhea Genitourinary: Denies: urgency, dysuria Musculoskeletal: Denies: back pain, arthralgia Integumentary: Denies: erythema, rash Neurological: Denies: headache, numbness Psychiatric: Denies: anxiety, depression Endocrine: Denies: polydipsia, polyuria Hematological/Lymphatic: Reports: easy bleeding, easy bruising. Denies: lymphadenopathy Allergic/Immunologic: Denies: facial swelling, urticaria PFSH Patient Stated Medical History Glaucoma Yes Hypertension Yes Diabetes Mellitus Type 2 Yes Osteoarthritis Yes Surgical History: Radial Keratotomy bilateral eyes. cholecystectomy 1994-- Jennifer. Breast surgery--benign cysts--Dr. Jara. Knee replacement 03/30 left ; 08/27 right--Dr. Sánchez. Bone Marrow Biopsy--Dr. Randhawa. Colonoscopy 06/08/14-- [facility]. Laser pressure reduction--R eye 10/21/13, Left eye, 10/28/13. Cataract removal L 01/24/14; R 04/04/14 Family History Updates: Discussed and no further information of any value - Social History Smoking status: Never smoker Substance use type: does not use Alcohol intake frequency: does not drink Housing: house Household members: spouse Current occupational status: retired Current residence: Apartment/Private Home Physical Exam - Limitations Limitations: no limitations - General General appearance: alert, in no apparent distress - Normal Exams: Head:: Normocephalic without trauma Eyes:: Pupils are PERRLA w/ EOMI, No scleral icterus, irritation, or foreign bodies noted ENMT:: No facial trauma, nasal exudates, pharyngeal erythema, or exudates are noted Dental: No fractured, loose, or missing teeth noted Neck:: Full range of motion, without adenopathy, JVD, bruits or thyromegaly Chest/Respirations:: Clear all taveras, with good airflow, and symmetry bilaterally Cardiovascular:: Regular rate and rhythm, without murmur or gallop, Pulses 2+ all extremities, capillary refill, <2 seconds all extremities Abdomen:: Bowel sounds positive (soft. Mild epigastric tenderness to palpation without rebound or guarding. No CVA tenderness.), non-distended, no hepatosplenomegaly, masses or bruits noted Lymphatic:: No lymphadenopathy, or lymphedema noted Musculoskeletal:: No tenderness, or deformity noted, good range of motion, all extremities Integumentary:: No rashes, hives, or bruising noted, hair and nails, without abnormality Neurological:: Patient is alert, and oriented, cranial nerves, motor/sensory/ cerebellar, exams w/o gross deficits, to observation Psychiatric:: Patient exhibits, appropriate attention, emotion and affect Course Vital Signs Temperature 98.3 F 05/08/17 10:30 Pulse Rate 51 L 05/08/17 10:30 Respiratory Rate 16 05/08/17 10:30 Blood Pressure 135/94 H 05/08/17 10:30 Pulse Oximetry 96 05/08/17 10:30 Temperature 98.3 F 05/08/17 10:30 Pulse Rate 55 L 05/08/17 12:55 Respiratory Rate 19 05/08/17 12:55 Blood Pressure 118/63 05/08/17 12:55 Pulse Oximetry 97 05/08/17 12:55 Medical Decision Making - [facility] Narrative Medical decision making narrative: Labs / imaging were discussed in detail with the patient and family and questions are answered. She is given 500 mL of normal saline intravenously times one. She is given Protonix 40 mg IV times one. She declines offered analgesic pain medication in the emergency Department. Patient is heme- positive on rectal examination with dark tarry stool. She is currently taking both Plavix and Eliquis. She is discussed with Dr. Angelo and will be admitted to his service in improved condition. She'll be admitted for further evaluation and treatment. Patient and family are in agreement with the current plan of management. No further orders from accepting physician who is in agreement with the current plan of management. Dr. Oliveira will make his own surgical consultation. - Differential Diagnosis GI bleed, anemia, viral syndrome, UTI - Lab Data Result diagrams: 05/08/17 11:07 05/08/17 11:07 Lab Results 05/08/17 05/08/17 05/08/17 Range/Units 11:07 11:07 11:07 WBC 8.1 (4.5-11.0) T/MM3 RBC 4.21 (4.00-5.20) M/MM3 Hgb 12.0 (12-16) GM/DL Hct 36.6 (36-46) % MCV 86.9 (80-100) UM3 MCH 28.5 (26-34) UUG MCHC 32.8 (31-37) GM/DL RDW Std Deviation 40.8 (36.9-50.2) FL Plt Count 274 (130-400) T/MM3 MPV 9.0 L (9.4-12.4) UM3 Immature Gran % (Auto) 0.1 (0.0-0.5) % Neut % (Auto) 69.2 H (33-66) % Lymph % (Auto) 19.3 L (23-45) % [place] % (Auto) 6.1 (0-9.0) % Eos % (Auto) 4.7 H (0-4) % Baso % (Auto) 0.6 (0-2) % Neut # (Auto) 5.6 (1.8-7.7) T/MM3 Lymph # (Auto) 1.6 (1-4.8) T/MM3 [place] # (Auto) 0.5 (0-0.8) T/MM3 Eos # (Auto) 0.4 (0-0.5) T/MM3 Baso # (Auto) 0.1 (0-0.2) T/MM3 Abs Immat Gran (auto) 0.01 (0.00-0.03) T/MM3 INR 1.64 H (0.99-1.21) APTT 52.5 H (24-36) SEC Turbidity < 20 (0-20) Sodium 139 (134-144) MEQ/L Potassium 4.5 (3.6-5) MEQ/L Chloride 100 (98-107) MEQ/L Carbon Dioxide 24 (22-30) MEQ/L Anion Gap 15 (5-15) MEQ/L BUN 27.0 H (7-17) MG/DL Creatinine 1.5 H (0.7-1.2) mg/dL GFR Calculation 33 BUN/Creatinine Ratio 18 (6-26) RATIO Glucose 128 H (65-110) MG/DL Calculated Osmolality 275 (261-280) MOSM/KG Calcium 10.1 (8.4-10.2) MG/DL Total Bilirubin 0.40 (0.20-1.30) MG/DL Icterus Index < 2 (0-7) AST 20 (14-36) U/L ALT 16 (1-35) U/L Alkaline Phosphatase 75 (38-126) U/L Troponin I < 0.012 (0-0.12) ng/ml Total Protein 8.2 (6.3-8.2) g/dL Albumin 4.4 (3.5-5.0) g/dL Globulin 3.8 H (2.4-3.6) G/DL Albumin/Globulin Ratio 1.2 (1.1-2.2) RATIO Lipase 421 H (23-300) U/L Specimen Hemolysis < 15 (0-25) Ur Collection Type Urine Color (YELLOW) Urine Clarity Urine pH (5.0-8.0) Ur Specific [place] (1.015-1.025) Urine Protein (NEGATIVE) Urine Glucose (UA) (NEGATIVE) Urine Ketones (NEGATIVE) Urine Occult Blood (NEGATIVE) Urine Nitrate (NEGATIVE) Urine Bilirubin (NEGATIVE) Urine Urobilinogen (NORMAL) EU/DL Ur Leukocyte Esterase (NEGATIVE) Urinalysis Comment 05/08/17 Range/Units 12:13 WBC (4.5-11.0) T/MM3 RBC (4.00-5.20) M/MM3 Hgb (12-16) GM/DL Hct (36-46) % MCV (80-100) UM3 MCH (26-34) UUG MCHC (31-37) GM/DL RDW Std Deviation (36.9-50.2) FL Plt Count (130-400) T/MM3 MPV (9.4-12.4) UM3 Immature Gran % (Auto) (0.0-0.5) % Neut % (Auto) (33-66) % Lymph % (Auto) (23-45) % [place] % (Auto) (0-9.0) % Eos % (Auto) (0-4) % Baso % (Auto) (0-2) % Neut # (Auto) (1.8-7.7) T/MM3 Lymph # (Auto) (1-4.8) T/MM3 [place] # (Auto) (0-0.8) T/MM3 Eos # (Auto) (0-0.5) T/MM3 Baso # (Auto) (0-0.2) T/MM3 Abs Immat Gran (auto) (0.00-0.03) T/MM3 INR (0.99-1.21) APTT (24-36) SEC Turbidity (0-20) Sodium (134-144) MEQ/L Potassium (3.6-5) MEQ/L Chloride (98-107) MEQ/L Carbon Dioxide (22-30) MEQ/L Anion Gap (5-15) MEQ/L BUN (7-17) MG/DL Creatinine (0.7-1.2) mg/dL GFR Calculation BUN/Creatinine Ratio (6-26) RATIO Glucose (65-110) MG/DL Calculated Osmolality (261-280) MOSM/KG Calcium (8.4-10.2) MG/DL Total Bilirubin (0.20-1.30) MG/DL Icterus Index (0-7) AST (14-36) U/L ALT (1-35) U/L Alkaline Phosphatase (38-126) U/L Troponin I (0-0.12) ng/ml Total Protein (6.3-8.2) g/dL Albumin (3.5-5.0) g/dL Globulin (2.4-3.6) G/DL Albumin/Globulin Ratio (1.1-2.2) RATIO Lipase (23-300) U/L Specimen Hemolysis (0-25) Ur Collection Type Urine, void-cc/notcc Urine Color Yellow (YELLOW) Urine Clarity Clear Urine pH 5.0 (5.0-8.0) Ur Specific [place] <=1.005 L (1.015-1.025) Urine Protein Negative (NEGATIVE) Urine Glucose (UA) Negative (NEGATIVE) Urine Ketones Negative (NEGATIVE) Urine Occult Blood Negative (NEGATIVE) Urine Nitrate Negative (NEGATIVE) Urine Bilirubin Negative (NEGATIVE) Urine Urobilinogen 0.2 (NORMAL) EU/DL Ur Leukocyte Esterase Negative (NEGATIVE) Urinalysis Comment Microscopic not ind. - Radiology Data CT ABD/PELVIS: No acute processes. (PT refused IV Contrast.) - EKG Data EKG #1 EKG results narrative: Sinus bradycardia with first-degree AV block. 57 bpm. No STEMI. Disposition Clinical Impression: GI bleed Qualifiers: GI bleed type/associated pathology: unspecified gastrointestinal hemorrhage type Qualified Code(s): K92.2 - Gastrointestinal hemorrhage, unspecified Disposition: To [facility] Condition: Stable Time of Disposition: 12:40 (Admit. Dr. Angelo. ) - Seen By: physician
[2017-05-08] MEDS: SALINE FLUSH 10ml SYRINGE IVF PRN ×2 (13:00→21:39)
--- NOTE | 2017-05-08 13:00 | CT Scan Report ---
Indication: ABD PAIN PROCEDURE: CT abdomen pelvis wo con: Encounter: Initial Comparison: None Technique: Axial CT images were performed through the abdomen and pelvis without intravenous contrast. Coronal and sagittal two-dimensional reformats. Automated Exposure Control and Iterative Reconstruction dose reducing techniques were utilized. Findings: The lung bases are clear. The unenhanced contours of the liver show an indeterminate low-attenuation lesion measuring 1 cm in size in the right hepatic dome on coronal image #31 additional vague area of low-attenuation in the left lobe of the liver which is difficult to precisely measure. The gallbladder is surgically absent. The spleen appears normal. The pancreas is normal. The adrenal glands are normal. The kidneys are normal. No abdominal or pelvic lymphadenopathy. Bladder is grossly normal. Calcified uterine fibroids. No free fluid. No evidence of a bowel obstruction.. Bone windows show no lytic or blastic osseous lesions. Impression: 1. No acute disease process seen in the abdomen or pelvis. 2. Indeterminate low-attenuation hepatic foci suggest contrast enhanced abdominal CT or MRI for further characterization which can be performed on a nonemergent basis. .
[2017-05-08] MEDS ORDERED: PANTOPRAZOLE 40 MG INJECTION IVP ONE (13:05)
[2017-05-08 14:31] VITALS: BMI 38.9
--- NOTE | 2017-05-08 14:33 | History & Physical Report ---
History of Present Illness Date: 05/08/17 Chief complaint: dark stools and abd pain HPI: Patient is a 81-year-old female who presents to the ER because she's had dark stools and abdominal pain. She was just dismissed from the hospital May 01 following a stay for a non-ST elevation myocardial infarction with ST depression , followed by heart cath (by Dr. Patel) with stenting of the left circumflex which had 80% stenosis. She was started on Plavix and Eliquis during that hospital stay. She states a few days after dismissal she developed "stomach pain." She hadn't had a bowel movement for several days, when she did have a bowel movement yesterday it was very dark black - darker than what it normally is as she takes iron. Today she had another very dark stool. She's been having abdominal pain since 05/03/17. No history of previous GI bleed or other concerns. She feels very fatigued and has no appetite. States the "stomach feels empty." States ever since her hospitalization she feels short of breath. Just walking across the house causes her to feel overwhelmingly fatigued and out of breath. No chest tightness or pain. She was seen in the ER with her daughter present. She states she is very sensitive to many blood pressure medications and doesn't tolerate most of them. She also reports she's had some recent double vision which was worked up with an MRI showing a possible small pituitary tumor. 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 She was due to have a repeat MRI now, but was told she has to wait 8 weeks since she has the stent. Review of Systems All systems PM: 10-point ROS was reviewed, no additional remarkable complaints except (epigastric pain, decreased appetite, black stools, shortness of breath.) Past Medical History Atrial fibrillation Hypertension Type 2 diabetes mellitus Recent non-ST elevation [place] Status post heart catheterization 04/30/17. MGUS - (diagnosed 2009) Glaucoma Recent finding of pituitary tumor on MRI (work-up in process) Surgical History: Radial Keratotomy bilateral eyes. cholecystectomy 1994-- Jennifer. Breast surgery--benign cysts--Dr. Jara. Knee replacement 03/30 left ; 08/27 right--Dr. Sánchez. Bone Marrow Biopsy--Dr. Randhawa. Laser pressure reduction--R eye 10/21/13, Left eye, 10/28/13. Cataract removal L 01/24/14; R . L4 hemilaminectomy with L3-4, L4-5 laminotomy (Dr. Marshall) 11/09. Colonoscopy 06/08/13 (Dr. Conway)-negative. Heart catheterization with stent placement (Dr. Patel)-05/10 Family History: Father-prostate cancer, Alzheimer's Mother-metastatic cancer-question primary Family History Updates: reviewed - Social History Smoking status: Never smoker Substance use type: does not use Alcohol intake frequency: does not drink Housing: house Household members: spouse Current occupational status: retired Current residence: Apartment/Private Home Social history: PCP-Dr. Mayorga House Mover-Dr. Melchor Neurosurgeon-Dr. Marshall Eye surgeon-Dr. Teixeira Orthopedist-Dr. Boyd Oncologist-Dr. Randhawa Dynamics Ax Consultant-Dr. Palomino Build Technician-Dr. Iam Saavedra Snagger-Dr. Patel Medications Home Medications Medication Instructions Recorded Confirmed Type Carboxymethylcellulos/Glycerin 1 drop BOTH EYES BID PRN #0 07/07/15 05/08/17 History [Refresh Optive Eye Drops] Ferrous Sulfate [Iron] 325 mg PO DAILY 04/28/17 05/08/17 History Furosemide [Lasix 20 mg Tab] 40 mg PO DAILY 04/28/17 05/08/17 History Turmeric/Turmeric Ext/Pepr Ext 500 mg PO HS 04/28/17 05/08/17 History [Turmeric Complex 500 mg Cap] Amiodarone [Pacerone] 200 mg PO DAILY #30 tab 05/01/17 05/08/17 Rx Apixaban [Eliquis] 5 mg PO BID #60 tab 05/01/17 05/08/17 Rx Clopidogrel [Plavix] 75 mg PO DAILY #30 tab 05/01/17 05/08/17 Rx Minoxidil [Loniten] 5 mg PO DAILY #60 tab 05/01/17 05/08/17 Rx Nitroglycerin [Nitrostat] 0.4 mg SL Q5M PRN #25 tab 05/01/17 05/08/17 Rx Acetaminophen [Acetaminophen Extra 1,000 mg PO Q4H PRN 05/08/17 05/08/17 History Strength] Aspirin [Aspirin EC] 81 mg PO HS 05/08/17 05/08/17 History Cholecalciferol (Vitamin D3) 1,000 unit PO HS 05/08/17 05/08/17 History [Vitamin D3] Cyanocobalamin (Vitamin B-12) 1,000 mcg PO DAILY 05/08/17 05/08/17 History [Vitamin B-12] Fexofenadine [Lisbeth] 180 mg PO DAILY 05/08/17 05/08/17 History Lactobacillus Acidophilus 1 cap PO DAILY 05/08/17 05/08/17 History [Probiotic] Levothyroxine Sodium 150 mcg PO ACB 05/08/17 05/08/17 History Metformin [Glucophage] 500 mg PO BID 05/08/17 05/08/17 History Potassium Chloride 10 meq PO BID 05/08/17 05/08/17 History Ubidecarenone/Vit E Acet [Co Q-10 100 mg PO DAILY 05/08/17 05/08/17 History 100 mg Softgel] Allergies Allergy/AdvReac Type Severity Reaction Status Date / Time amlodipine Allergy Severe EDEMA Verified 05/08/17 10:49 diltiazem Allergy Intermediate ACHY Verified 05/08/17 10:49 MUSCLES & WEAKNESS doxazosin Allergy Intermediate ITCHING Verified 05/08/17 10:49 doxepin Allergy Intermediate WEIRD Verified 05/08/17 10:49 DREAMS lisinopril Allergy Intermediate ACHY Verified 05/08/17 10:49 MUSCLES & WEAKNESS losartan Allergy Intermediate ACHY Verified 05/08/17 10:49 MUSCLES & WEAKNESS pitavastatin Allergy Intermediate ACHY Verified 05/08/17 10:49 MUSCLES & WEAKNESS hydromorphone Allergy Mild NAUSEA Verified 05/08/17 10:49 Lrwyllq-Mxy-Llk Reductase Allergy Unknown Verified 05/08/17 10:49 Inhibitor hydrocodone AdvReac Unknown NAUSEA Verified 05/08/17 10:49 Exam Vital Signs: Temperature 98.3 F 05/08/17 10:30 Pulse Rate 54 L 05/08/17 14:03 Respiratory Rate 19 05/08/17 14:03 Blood Pressure 148/85 H 05/08/17 14:03 Pulse Oximetry 98 05/08/17 14:03 - Constitutional Present: no acute distress, well nourished, well developed - Routine HEENT Exam Head: Present: normocephalic, atraumatic Eye: Present: EOMI, PERRL ENT: Present: mucous membranes moist, oropharynx clear - Routine Neck Exam Present: supple. Absent: lymphadenopathy, thyromegaly - Routine Respiratory Exam Present: CTA bilaterally. Absent: wheezes - Routine Cardiovascular Exam Present: RRR, no murmur - Routine Abdominal Exam Present: soft, normoactive bowel sounds, tenderness (moderate-epigastric). Absent: distended, guarding, firm - Routine Extremities Exam Present: no edema, normal capillary refill - Routine Skin Exam Present: dry, warm Comments: Ecchymosis right ventral wrist secondary to recent heart catheterization - Routine Neurological Exam Present: alert, oriented X3, CN II-XII intact - Routine Psychiatric Exam Present: normal affect, cooperative Results - Labs CBC & Chem 7: 05/08/17 16:10 05/08/17 11:07 Assessment and Plan (1) GI bleed Current visit: Yes Status: Acute Assessment and Plan: Assessment Gastrointestinal bleeding following initiation of Eliquis and Plavix Melanotic stools S/P heart catheterization with stent placement in the left circumflex-Dr. Patel (04/30/17) Atrial fibrillation - currently in NSR (atrial fibrillation with RVR with recent hospitalization, converted to sinus rhythm with medication)-on Amiodarone Coronary artery disease Recent non-ST elevation [place] Status post heart catheterization and stent placement 04/30/17 Hypertension Type 2 diabetes mellitus Stage III CKD MGUS - (diagnosed 2009) Glaucoma Recent finding of pituitary tumor on MRI (work-up in process) Obesity with BMI 39.0 Plan Admit, observation, under the hospitalist service, Dr. Oliveira attending. Hold Eliquis, Plavix, and aspirin. Start Protonix IV twice a day. Consult to Dr. Mcdaniel. Continue normal saline at 100 cc/h. Accu-Cheks fasting and 2 hr pp. Hold metformin while NPO. Recheck lipase in am secondary to mild elevation of lipase at admission. Iron studies ordered Type and screen ordered initiated in the event she will need blood transfusion NPO. Telemetry SCDs for DVT prophylaxis. Patient wishes to be a full code. Care to return to Dr. Mayorga upon dismissal. Case discussed Dr. Oliveira. DVT Prophylaxis: SCD's GI Prophylaxis: Protonix Resuscitation Status: Full Code - Physician Narrative Physician: Arturo Oliveira MD Narrative: Date: 05/08/17 Time: 1705 Have independently interviewed and examined pt. Chart reviewed. Case discussed with ED physician, Dr Mcdaniel, and my PA. Care plan developed with my supervision; agree with above. Present to ED secondary to passing black stools. Recent hospitalization with initiation of Plavix and Eliquis for anticoagulation secondary to stent and Afib. Passed black stool yesterday. Notes increase dyspepsia-stomach feels like she needs to eat, but also sick to stomach with thought of eating. Stools black again this am. Did feel heart fluttering. Notes SOA with activities-no cough or sputum. Does feel more weak and unsteady. Evaluated in ED. Stool reported grossly occult blood positive. With concern for acute GI bleed in patient using anticoagulation, placed in OBS for further evaluation and treatment. Lungs: clear bilaterally CV: bradycardic, regular AB: soft nt/nd BS decreased MSE: awake alert appropriate Plan: OBS. IV Protonix BID for GI protection. Monitor hemoglobin-pt typed and screened. Hold anticoagulation due to GI bleeding. Dr Mcdaniel consulted for surgical recommendations - will hold on endoscopic procedure for now. He did recommend clear liquids and initiation of Carafate. With starting clear liquids , will decrease NS to 75cc/hr. SCD for DVT prevention. Full code per pt's request. Case discussed with patient and family. Hospital Course Summary Disclaimer: The visit summary below is not to be considered part of the above Progress Note. Hospital Course: 05/08/17 Admit, observation, under the hospitalist service, Dr. Oliveira attending. Hold Eliquis, Plavix, and aspirin. Start Protonix IV twice a day. Monitor hemoglobin serially. Type and screened in the event she will need blood transfusion. Iron studies ordered. Consult to Dr. Mcdaniel. NPO for bowel rest until evaluated by Dr Mcdaniel. Normal saline at 100 cc/h for hydration. Accu-Cheks fasting and 2 hr pp. Hold metformin while NPO. Recheck lipase in am secondary to mild elevation of lipase at admission. NPO. Telemetry. SCDs for DVT prophylaxis. Patient wishes to be a full code. Care to return to Dr. Mayorga upon dismissal. Dr Mcdaniel evaluated patient - can hold on endoscopic procedure at this time due to recent TN and anticoagulation. Initiated clear liquid diet and started Carafate 1 gram ac and hs. With starting clear liquids, will decrease NS to 75cc/hr.
--- NOTE | 2017-05-08 15:51 | General Surgery Consult Note ---
Consult date: 05/08/17 Attending Physician: Arturo Oliveira MD Reason for consult: other (GI bleed) [facility] Patient Stated Medical History Cataracts Yes: bilateral Dental Problems Yes: upper dentures/bottom partial Cardiac Arrhythmia Yes: HX-A-fib Coronary Artery Disease Yes Hypertension Yes Myocardial Infarction Yes: 2 weeks ago Diabetes Mellitus Type 2 Yes Gastrointestinal Bleeding Yes: currently Other Musculoskeletal Yes: arthritis in back Surgical History: -Radial Keratotomy bilateral eyes. -cholecystectomy 1994-- Jennifer. -Breast surgery--benign cysts--Dr. Jara. -Knee replacement 03/30 left; 08/27 right--Dr. Sánchez. -Bone Marrow Biopsy--Dr. Randhawa. -Laser pressure reduction--R eye 10/21/13, Left eye, 10/28/13. -Cataract removal L 01/24/14; R 04/04. -L4 hemilaminectomy with L3-4, L4-5 laminotomy (Dr. Marshall) 11/09. - Colonoscopy 06/08/13 (Dr. Conway)-hyperplastic polyps, no diverticula. -Heart catheterization with stent placement (Dr. Patel)-04/30/2017 Family History: Father-prostate cancer, Alzheimer's Mother-metastatic cancer-question primary Family History Updates: reviewed - Social History Smoking status: Never smoker Substance use type: does not use Alcohol intake frequency: does not drink Housing: house Household members: spouse Current occupational status: retired Current residence: Apartment/Private Home Medications Home Medications Medication Instructions Recorded Confirmed Type Carboxymethylcellulos/Glycerin 1 drop BOTH EYES BID PRN #0 07/07/15 05/08/17 History [Refresh Optive Eye Drops] Ferrous Sulfate [Iron] 325 mg PO DAILY 04/28/17 05/08/17 History Furosemide [Lasix 20 mg Tab] 40 mg PO DAILY 04/28/17 05/08/17 History Turmeric/Turmeric Ext/Pepr Ext 500 mg PO HS 04/28/17 05/08/17 History [Turmeric Complex 500 mg Cap] Amiodarone [Pacerone] 200 mg PO DAILY #30 tab 05/01/17 05/08/17 Rx Apixaban [Eliquis] 5 mg PO BID #60 tab 05/01/17 05/08/17 Rx Clopidogrel [Plavix] 75 mg PO DAILY #30 tab 05/01/17 05/08/17 Rx Minoxidil [Loniten] 5 mg PO DAILY #60 tab 05/01/17 05/08/17 Rx Nitroglycerin [Nitrostat] 0.4 mg SL Q5M PRN #25 tab 05/01/17 05/08/17 Rx Acetaminophen [Acetaminophen Extra 1,000 mg PO Q4H PRN 05/08/17 05/08/17 History Strength] Aspirin [Aspirin EC] 81 mg PO HS 05/08/17 05/08/17 History Cholecalciferol (Vitamin D3) 1,000 unit PO HS 05/08/17 05/08/17 History [Vitamin D3] Cyanocobalamin (Vitamin B-12) 1,000 mcg PO DAILY 05/08/17 05/08/17 History [Vitamin B-12] Fexofenadine [Lisbeth] 180 mg PO DAILY 05/08/17 05/08/17 History Lactobacillus Acidophilus 1 cap PO DAILY 05/08/17 05/08/17 History [Probiotic] Levothyroxine Sodium 150 mcg PO ACB 05/08/17 05/08/17 History Metformin [Glucophage] 500 mg PO BID 05/08/17 05/08/17 History Potassium Chloride 10 meq PO BID 05/08/17 05/08/17 History Ubidecarenone/Vit E Acet [Co Q-10 100 mg PO DAILY 05/08/17 05/08/17 History 100 mg Softgel] Allergies Allergy/AdvReac Type Severity Reaction Status Date / Time amlodipine Allergy Severe EDEMA Verified 05/08/17 10:49 diltiazem Allergy Intermediate ACHY Verified 05/08/17 10:49 MUSCLES & WEAKNESS doxazosin Allergy Intermediate ITCHING Verified 05/08/17 10:49 doxepin Allergy Intermediate WEIRD Verified 05/08/17 10:49 DREAMS lisinopril Allergy Intermediate ACHY Verified 05/08/17 10:49 MUSCLES & WEAKNESS losartan Allergy Intermediate ACHY Verified 05/08/17 10:49 MUSCLES & WEAKNESS pitavastatin Allergy Intermediate ACHY Verified 05/08/17 10:49 MUSCLES & WEAKNESS hydromorphone Allergy Mild NAUSEA Verified 05/08/17 10:49 [id number] Reductase Allergy Unknown Verified 05/08/17 10:49 Inhibitor hydrocodone AdvReac Unknown NAUSEA Verified 05/08/17 10:49 Review of Systems 10-point ROS: negative except for HPI and the following: - Cardiovascular Cardiovascular: Present: chest pain (angina) (with heart cath and Stent's by Dr. Patel), irregular heart beat (A-fib with RVR April 25, 2017) - Gastrointestinal Gastrointestinal: Present: blood in stools (dark stools) - Musculoskeletal Musculoskeletal: Present: joint pain - Hematologic/Lymphatic Hematologic/Lymphatic: Present: easy bruising, use of blood thinners - Vital Signs Last Vital Signs Temp 98.3 F 05/08/17 10:30 Pulse 51 L 05/08/17 14:47 Resp 18 05/08/17 14:47 BP 119/67 05/08/17 14:47 Pulse Ox 98 05/08/17 14:47 - Laboratory Result Diagrams: 05/08/17 11:07 05/08/17 11:07 Hospital Course Summary Disclaimer: The visit summary below is not to be considered part of the above Progress Note. Hospital Course: 05/08/17 Admit, observation, under the hospitalist service, Dr. Oliveira attending. Hold Eliquis, Plavix, and aspirin. Start Protonix IV twice a day. Consult to Dr. Mcdaniel. Continue normal saline at 100 cc/h. Accu-Cheks fasting and 2 hr pp. Hold metformin while NPO. Lipase ordered to further workup abdominal pain. Iron studies ordered Type and screen ordered initiated in the event she will need blood transfusion NPO. Telemetry SCDs for DVT prophylaxis. Patient wishes to be a full code. Care to return to Dr. Mayorga upon dismissal. Case discussed Dr. Oliveira.
[2017-05-08] MEDS ORDERED: GLUCOSE ORAL GEL 40% 37.5gm PO PRN (15:58)
[2017-05-08] MEDS ORDERED: DEXTROSE 50% SYRINGE 50ml (1 AMP) IVP PRN (15:58)
[2017-05-08] MEDS ORDERED: NITROGLYCERIN 0.4 MG SUBLINGUAL TABLET SL PRN (15:58)
[2017-05-08] MEDS ORDERED: NS 1,000 ML IV SCH (15:58)
[2017-05-08] MEDS: SUCRALFATE 1gm/10ml ORAL LIQUID PO SCH ×2 (17:28→21:38)
[2017-05-08] MEDS: NS 1,000 ML IV SCH (17:33)
--- NOTE | 2017-05-08 17:52 | Consultation ---
DATE OF CONSULTATION 05/08/2017 FINDINGS Mrs. Angela is a 81-year-old female whom I was asked to see today as a result of her reported history for melanotic stools. Mrs. Angela is known my surgical practice. I have seen her in the past. Patient informs me that about a week and a half ago she had undergone cardiac catheterization with placement of a coronary stent. She was placed on antiplatelet therapy following her stent placement. The patient states that she has noted some discomfort within her upper abdomen over the last several days. She states that she has had a "hungry feeling" but does not "feel like eating." She has not had severe pain. She has not had any element of hematemesis. She denies any significant nonsteroidal use. She states that she does take a baby aspirin on a daily basis. Patient states that yesterday she had noted that her stool was significantly more black than usual. The patient states that her stools are typically somewhat darker in nature for she does take iron supplementation. The patient states that this morning she had noted that her stools were once again dark in nature. She brought this to the attention of her daughter who informed her mother that this could be a sign of bleeding and that she should inform her banquet houseperson. The patient did contact her banquet houseperson who informed her appropriately that she should present to the emergency room for further evaluation. The patient has now been admitted for further evaluation. The patient this evening denies severe pain. She is requesting diet. PAST MEDICAL HISTORY, PAST SURGICAL HISTORY, MEDICATIONS, ALLERGIES, SOCIAL HISTORY, FAMILY HISTORY, REVIEW OF SYSTEMS Performed by my nurse practitioner, Juan Luis Hopper APRN. PHYSICAL EXAMINATION GENERAL: Patient is a 81-year-old female who this afternoon did not appear to be in any acute distress. VITAL SIGNS: Temperature 98.3, pulse 51, respirations 18, blood pressure 119/67 , SAO2 98% room air. HEENT: Normocephalic. Pupils are equally round and react to light and accommodation. NECK: Supple without lymphadenopathy. CHEST: Clear to auscultation bilaterally. HEART: Regular rate and rhythm. Normal S1 and S2 without gallops, murmurs or clicks. ABDOMEN: Palpation of the abdomen reveals it to be soft and nontender. I do not appreciate any evidence for hepatosplenomegaly nor abnormal masses. EXTREMITIES: Without clubbing, cyanosis, or edema. NEURO: Cranial nerves II-XII grossly intact. Patient is without focal motor or sensory deficits. LABORATORY/RADIOGRAPHIC EVALUATION The patient had a CBC and her hemoglobin was 11.8. White count was normal 7.5. CMP was obtained and found to be without marked abnormalities. BUN and creatinine were elevated at 27.0 and 1.5, respectively. UA was obtained and found to be negative. ASSESSMENT 81-year-old female, with known history for atherosclerotic coronary artery disease, approximately a week and a half status post cardiac catheterization with placement of coronary stent within left circumflex. Patient with presentation of questionable melanotic stools. PLAN Initiate empiric treatment for peptic ulcer disease. Continue to follow from a clinical standpoint and laboratory standpoint. Would not recommend need for EGD at this time. I did inform the patient and her family members that it is somewhat of a difficult situation given the fact that the patient has recently undergone cardiac catheterization with placement of a coronary stent requiring antiplatelet therapy. Patient currently is on both Plavix and Eliquis. I informed the patient and her family had she not undergone a recent cardiac catheterization requiring antiplatelet therapy I would recommend that we would proceed with esophagogastroduodenoscopy for further evaluation of the potential etiology for her melanotic stools. Given the significant risk, however, as a result of the above circumstances, it is my recommendation that we not proceed with EGD at this time and continue with her antiplatelet therapy. I would recommend that we treat the patient empirically for peptic ulcer disease. Would place the patient on Protonix 40 mg IV b.i.d. in conjunction with Carafate 1 g p.o. q.i.d. Will also obtain a serum H. pylori for further evaluation for possible Helicobacter pylori gastritis. I informed the patient and her family that if her hemoglobin would began to drift down significantly or if she would begin to experience frequent melanotic stools, we may need to reevaluate the situation at that time and proceed with endoscopic evaluation. Will also await input from her banquet houseperson, Dr. Patel, in regards to his thoughts from a cardiac/antiplatelet/anticoagulation standpoint. [facility]
[2017-05-08] MEDS: ACETAMINOPHEN 325 MG TABLET PO PRN ×2 (17:59→23:55)
[2017-05-08] MEDS ORDERED: PANTOPRAZOLE 40 MG INJECTION IVP SCH (21:00)
[2017-05-08] MEDS: PANTOPRAZOLE 40 MG INJECTION IVP SCH (21:38)
[2017-05-09] MEDS: NS 1,000 ML IV SCH ×2 (02:46→16:35)
[2017-05-09] MEDS: SUCRALFATE 1gm/10ml ORAL LIQUID PO SCH ×4 (06:22→21:12)
[2017-05-09] MEDS: LEVOTHYROXINE 150 MCG PO SCH (06:22)
[2017-05-09] MEDS: MINOXIDIL 2.5 MG PO SCH (08:32)
[2017-05-09] MEDS: PANTOPRAZOLE 40 MG INJECTION IVP SCH ×2 (08:32→21:12)
[2017-05-09] MEDS: FEXOFENADINE 180 MG PO SCH (08:32)
[2017-05-09] MEDS: --POM--AMIODARONE 200 MG TABLET PO SCH (08:32)
--- NOTE | 2017-05-09 10:08 | Progress Note ---
- Date 05/09/17 Subjective: Ayana was struggling through her liquid breakfast morning. She states that her stomach is "churning" and she feels nauseated. She feels bloated as well. She has had 2 black colored stools this morning. She feels very weak. She complains of dizziness and lightheadedness when she changes positions. She has felt short of breath, but that has been ongoing for the last few weeks. She was tearful and admits to feeling feeling down lately because of her recent stent placement , weakness, predicted metastases of needing anticoagulation yet having GI bleed , and she is worried about her , who had a recent fall. She commented that she will wait to see what God wants to do, and she is ready if He wants to take her. Objective Vital signs: Temperature 98.2 F 05/09/17 07:53 Pulse Rate 51 L 05/09/17 07:53 Respiratory Rate 14 05/09/17 07:53 Blood Pressure 136/67 05/09/17 07:53 Pulse Oximetry 96 05/09/17 07:53 Rhythm: Sinus Bradycardia Height/Weight/BMI: Height 1.68 m Weight 109.2 kg Body Mass Index 38.9 - Constitutional Present: mild distress (tearful and depressed), well nourished, well developed, obese - Routine HEENT Exam Head: Present: normocephalic Eye: Absent: conjunctival icterus, scleral injection ENT: Present: mucous membranes moist - Routine Respiratory Exam Present: CTA bilaterally - Routine Cardiovascular Exam Present: RRR, S1, S2, bradycardia - Routine Abdominal Exam Present: normoactive bowel sounds (hyperactive), tenderness (mild diffuse tenderness), distended - Routine Extremities Exam Present: edema (nonpitting edema bilateral), pulses intact - Routine Musculoskeletal Exam Musculoskeletal: Present: no clubbing or cyanosis - Routine Skin Exam Present: intact, dry, warm - Routine Neurological Exam Present: alert, oriented X3, normal speech - Routine Psychiatric Exam Present: normal thought process, cooperative Results - Labs CBC & Chem 7: 05/09/17 09:44 05/09/17 05:02 Assessment and Plan (1) GI bleed Current visit: Yes Status: Acute Assessment and Plan: Assessment Gastrointestinal bleeding following initiation of Eliquis and Plavix Melanotic stools S/P heart catheterization with stent placement in the left circumflex-Dr. Patel (04/30/17) Atrial fibrillation - currently in NSR (atrial fibrillation with RVR with recent hospitalization, converted to sinus rhythm with medication)-on Amiodarone Coronary artery disease Recent non-ST elevation TN Status post heart catheterization and stent placement 04/30/17 Hypertension Type 2 diabetes mellitus Stage III CKD MGUS - (diagnosed 2009) Glaucoma Recent finding of pituitary tumor on MRI (work-up in process) Obesity with BMI 39.0 Plan Patient continues to have melanotic stools despite initiating treatment with Protonix and Carafate. She is symptomatic with weakness, lightheadedness and dizziness. Per Amarilys Thomas APRN, her blood pressure is typically extremely high, but today it was normal at 136/67. She needs to be restarted on Plavix, per Amarilys Thomas, to protect the recent stent. It is okay to hold aspirin temporarily, but we should restart this as soon as possible. Per Amarilys, we will not restart Eliquis at this time (on a side note, the patient stated she couldn' t afford it anyway). Given her ongoing melanotic stools/active bleed, symptomatic anemia, and the need to continue with antiplatelet therapy, will change her status to inpatient. When she was discharged on 05/11/17, her hemoglobin was 12.6. This am , her hemoglobin was 10.9. Continue to monitor serial hemoglobins. Telemetry revealed a sinus thomas of 1.7 seconds, the patient has been bradycardic running in the upper 40s to low 50s. Per Amarilys, this does not unusual , and the patient is chronically bradycardic. Consider psychiatric consultation for suspected depression. Lipase improved this morning and is now within normal range. Creatinine improved from 1.5-1.2. Potassium was slightly elevated at 5.2, the specimen was grossly hemolyzed. We will recheck potassium this afternoon when her next hemoglobin level is drawn. Continue with IV fluids. Iron studies are pending. H. pylori antibody is also pending. Discussed in detail with Ayana's daughters, RN, Amarilys Thomas APRN, and Dr. He. Also discussed with Dr. Mcdaniel -- he's not recommending scope at this time. Time spent in room with patient and family: 40 min. DVT Prophylaxis: SCD's GI Prophylaxis: Protonix Resuscitation Status: Full Code - Physician Narrative Physician: Kristin He MD Narrative: Date: 05/09/17 Time: 1515 Mrs. Angela was seen with family members at the bedside. She reports having dark brown/black stool Marshall before I saw her but denied lightheadedness. She reports that abdominal discomfort/nausea is significantly improved from yesterday. NAD, alert Respirations nonlabored Irregular cardiac rhythm Abdomen soft, nontender except to deep palpation in the epigastrium, no guarding present, bowel sounds normal. Resume Plavix due to recent stent/risk of stent closure. Continue to hold Eliquis/aspirin. Hemoglobin stable. Suspect upper GI blood loss/gastritis. Conservative management at present. Telemetry strips reviewed by myself-atrial fibrillation with rate about 50, pauses of 1.6-1.7 seconds present which are asymptomatic. Rates intermittently in the 40s at night. Hospital Course Summary Disclaimer: The visit summary below is not to be considered part of the above Progress Note. Hospital Course: 05/08/17 Admit, observation, under the hospitalist service, Dr. Oliveira attending. Hold Eliquis, Plavix, and aspirin. Start Protonix IV twice a day. Monitor hemoglobin serially. Type and screened in the event she will need blood transfusion. Iron studies ordered. Consult to Dr. Mcdaniel. NPO for bowel rest until evaluated by Dr Mcdaniel. Normal saline at 100 cc/h for hydration. Accu-Cheks fasting and 2 hr pp. Hold metformin while NPO. Recheck lipase in am secondary to mild elevation of lipase at admission. NPO. Telemetry. SCDs for DVT prophylaxis. Patient wishes to be a full code. Care to return to Dr. Mayorga upon dismissal. Dr Mcdaniel evaluated patient - can hold on endoscopic procedure at this time due to recent TN and anticoagulation. Initiated clear liquid diet and started Carafate 1 gram ac and hs. With starting clear liquids, will decrease NS to 75cc/hr. 05/09/17 Patient continues to have melanotic stools despite initiating treatment with Protonix and Carafate. She is symptomatic with weakness, lightheadedness and dizziness. Per Amarilys Thomas APRN, her blood pressure is typically extremely high, but today it was normal at 136/67. She needs to be restarted on Plavix, per Amarilys Thomas, to protect the recent stent. It is okay to hold aspirin temporarily, but we should restart this as soon as possible. Per Amarilys, we will not restart Eliquis at this time (on a side note, the patient stated she couldn' t afford it anyway). Given her ongoing melanotic stools/active bleed, symptomatic anemia, and the need to continue with antiplatelet therapy, will change her status to inpatient. When she was discharged on 05/11/17, her hemoglobin was 12.6. This am , her hemoglobin was 10.9. Continue to monitor serial hemoglobins. Telemetry revealed a sinus thomas of 1.7 seconds, the patient has been bradycardic running in the upper 40s to low 50s. Per Amarilys, this does not unusual , and the patient is chronically bradycardic. Consider psychiatric consultation for suspected depression. Lipase improved this morning and is now within normal range. Creatinine improved from 1.5-1.2. Potassium was slightly elevated at 5.2, the specimen was grossly hemolyzed. We will recheck potassium this afternoon when her next hemoglobin level is drawn. Continue with IV fluids. Iron studies are pending. H. pylori antibody is also pending.
[2017-05-09] MEDS: CLOPIDOGREL 75 MG TABLET PO SCH (10:47)
--- NOTE | 2017-05-09 11:50 | Progress Note ---
DATE OF SERVICE 05/09/2017 FINDINGS Mrs. Angela was without significant complaints this morning. She states that she did have some mild abdominal discomfort after eating this morning. She has had some decreased appetite per her report. The patient states that she did have two more stools which were "black in nature." EXAM VITAL SIGNS: Afebrile, normotensive. Current vitals include temperature 98.2, pulse 51, respirations 14, blood pressure 136/67, SAO2 96% on room air. HEENT: Normocephalic. Pupils are equally round and react to light and accommodation. CHEST: Clear to auscultation bilaterally. HEART: Regular rate and rhythm. Normal S1 and S2 without gallops, murmurs or clicks. ABDOMEN: Palpation of abdomen reveals it to be soft and completely nontender. There is no evidence for guarding or rebound. Although the patient complained of pain within her epigastric region, palpation revealed the abdomen to be soft and completely nontender. ASSESSMENT 81-year-old female with history for atherosclerotic coronary artery disease. Status post cardiac catheterization with placement of drug-eluting stent within left circumflex. Patient with clinical history suggestive of peptic ulcer disease. Patient with questionable history for melanotic stools. PLAN The patient did have a CBC earlier this morning and her hemoglobin was 10.9. Repeat hemoglobin shows it to be 11.3. Yesterday her hemoglobin was 10.8. Although she has had some apparent additional melanotic stools her hemoglobin is actually slightly improved in comparison to yesterday. Serum H. pylori obtained yesterday is still pending at time of dictation. I informed the patient and her family that I still feel that it is best not to proceed with any endoscopic evaluation at this time and continue with empiric treatment for peptic ulcer disease. The patient's antiplatelet therapy has been reinitiated. I informed the patient and her family that if her hemoglobin would begin to drop precipitously or if she would develop significant rectal bleeding then at that time would reevaluate the situation and likely proceed with endoscopic evaluation at that time. The above plan/algorithm was again discussed with the patient and family members. They understood and agreed. LUIS
[2017-05-09] MEDS: ACETAMINOPHEN 325 MG TABLET PO PRN (16:34)
[2017-05-09] MEDS: SALINE FLUSH 10ml SYRINGE IVF PRN (21:12)
[2017-05-10 01:13] VITALS: RESP 20
[2017-05-10] MEDS: SUCRALFATE 1gm/10ml ORAL LIQUID PO SCH ×2 (05:54→11:55)
[2017-05-10] MEDS: LEVOTHYROXINE 150 MCG PO SCH (05:55)
[2017-05-10] MEDS: NS 1,000 ML IV SCH (05:55)
[2017-05-10] MEDS: PANTOPRAZOLE 40 MG INJECTION IVP SCH (09:29)
[2017-05-10] MEDS: CLOPIDOGREL 75 MG TABLET PO SCH (09:30)
[2017-05-10] MEDS: MINOXIDIL 2.5 MG PO SCH (09:31)
[2017-05-10] MEDS: --POM--AMIODARONE 200 MG TABLET PO SCH (09:32)
[2017-05-10] MEDS: FEXOFENADINE 180 MG PO SCH (09:34)
--- NOTE | 2017-05-10 13:10 | Progress Note ---
- Date 05/10/17 Subjective: Lucrecia is seen in follow up. She is feeling well. Reports ongoing loose stool, but no further "black stools". No abdominal pain. Tolerating clear liquids, but is hungry and would like to advance diet. She also is anxious to return home. Family is here visiting today. Objective Vital signs: Temperature 97.1 F 05/10/17 07:29 Pulse Rate 45 L 05/10/17 08:00 Respiratory Rate 20 05/10/17 07:29 Blood Pressure 126/70 05/10/17 07:29 Pulse Oximetry 95 05/10/17 07:29 Rhythm: Sinus Bradycardia Height/Weight/BMI: Weight 109 kg - Constitutional Present: no acute distress, average body habitus, cooperative - Routine HEENT Exam Head: Present: normocephalic, atraumatic Eye: Present: EOMI, PERRL ENT: Present: mucous membranes moist - Routine Respiratory Exam Present: CTA bilaterally. Absent: dyspnea, rhonchi, crackles - Routine Cardiovascular Exam Present: RRR, S1, S2 - Routine Abdominal Exam Present: soft, normoactive bowel sounds, non distended, non tender - Routine Extremities Exam Present: no edema, non tender - Routine Musculoskeletal Exam Musculoskeletal: Present: normal strength, moving extremities well - Routine Skin Exam Present: intact, dry, warm - Routine Neurological Exam Present: alert, oriented X3, moving all extremities - Routine Psychiatric Exam Present: normal affect, normal thought process, cooperative Results - Labs CBC & Chem 7: 05/10/17 14:49 05/10/17 04:23 Labs: 05/09/17 05/09/17 05/09/17 05:02 09:44 15:59 WBC 6.0 RBC 3.82 L Hgb 10.9 L 11.3 L 11.0 L Hct 32.8 L 34.3 L MCV 85.9 MCH 28.5 MCHC 33.2 RDW Std Deviation 39.9 Plt Count 270 MPV 9.3 L Immature Gran % (Auto) 0.7 H Neut % (Auto) 59.2 Lymph % (Auto) 26.0 Anderson % (Auto) 8.0 Eos % (Auto) 5.1 H Baso % (Auto) 1.0 Neut # (Auto) 3.6 Lymph # (Auto) 1.6 Anderson # (Auto) 0.5 Eos # (Auto) 0.3 Baso # (Auto) 0.1 Abs Immat Gran (auto) 0.04 H 05/10/17 04:23 WBC 5.0 RBC 3.69 L Hgb 10.5 L Hct 32.7 L MCV 88.6 MCH 28.5 MCHC 32.1 RDW Std Deviation 41.4 Plt Count 284 MPV 9.0 L Immature Gran % (Auto) 0.2 Neut % (Auto) 55.9 Lymph % (Auto) 29.5 Anderson % (Auto) 7.9 Eos % (Auto) 5.7 H Baso % (Auto) 0.8 Neut # (Auto) 2.8 Lymph # (Auto) 1.5 Anderson # (Auto) 0.4 Eos # (Auto) 0.3 Baso # (Auto) 0.0 Abs Immat Gran (auto) 0.01 Assessment and Plan (1) GI bleed Current visit: Yes Status: Acute Assessment and Plan: Assessment Gastrointestinal bleeding following initiation of Eliquis and Plavix Melanotic stools S/P heart catheterization with stent placement in the left circumflex-Dr. Patel (04/30/17) Atrial fibrillation - currently in NSR (atrial fibrillation with RVR with recent hospitalization, converted to sinus rhythm with medication)-on Amiodarone Coronary artery disease Recent non-ST elevation [place] Status post heart catheterization and stent placement 04/30/17 Hypertension Type 2 diabetes mellitus Stage III CKD MGUS - (diagnosed 2009) Glaucoma Recent finding of pituitary tumor on MRI (work-up in process) Obesity with BMI 39.0 Plan 05/10/17 Patient is improving, and anxious to go home. HGB is down again a bit today. She remains on clear liquids. She required restart on Plavix due to recent stent to prevent reocclusion. Continue to hold NOAC. Resume ASA as soon as we can safely. Will advance to regular diet. Change PPI to oral dosing BID and continue carafate. H.Pylori is still pending. She is bradycardic, but that is her baseline per cardiology. HR is now dipping down to 39. May need a decreased dose of Amiodarone if persists. Continue supportive care. Repeat labs in AM. Possible home tomorrow so we can ensure she does ok with regular food and oral PPI. DVT Prophylaxis: SCD's GI Prophylaxis: Protonix Resuscitation Status: Full Code - Physician Narrative Physician: Kristin He MD Narrative: Date: 05/10/17 Time: 1530 I have independently evaluated and examined this patient. I reviewed the chart, the patient's history, and the INSTRUMENT AND CONTROL TECHNICIAN/PA's documented findings as above. We discussed and formulated the assessment and plan as above with additions as below: Doing well, no residual abdominal discomfort and had a brown stool earlier today. Denies lightheadedness or palpitations. Multiple telemetry strips reviewed-sinus bradycardia with some sinus arrhythmia. Abdomen soft, nontender. Alert, NAD, blood pressure stable Repeat hemoglobin this afternoon 10.[address] Mcdaniel earlier today-stable for discharge. To remain off Eliquis pending reassessment. Discussed use of Carafate tablets and dissolving to form suspension at home. Have recommended holding herbal products. Hospital Course Summary Disclaimer: The visit summary below is not to be considered part of the above Progress Note. Hospital Course: 05/08/17 Admit, observation, under the hospitalist service, Dr. Oliveira attending. Hold Eliquis, Plavix, and aspirin. Start Protonix IV twice a day. Monitor hemoglobin serially. Type and screened in the event she will need blood transfusion. Iron studies ordered. Consult to Dr. Mcdaniel. NPO for bowel rest until evaluated by Dr Mcdaniel. Normal saline at 100 cc/h for hydration. Accu-Cheks fasting and 2 hr pp. Hold metformin while NPO. Recheck lipase in am secondary to mild elevation of lipase at admission. NPO. Telemetry. SCDs for DVT prophylaxis. Patient wishes to be a full code. Care to return to Dr. Mayorga upon dismissal. Dr Mcdaniel evaluated patient - can hold on endoscopic procedure at this time due to recent AR and anticoagulation. Initiated clear liquid diet and started Carafate 1 gram ac and hs. With starting clear liquids, will decrease NS to 75cc/hr. 05/09/17 Patient continues to have melanotic stools despite initiating treatment with Protonix and Carafate. She is symptomatic with weakness, lightheadedness and dizziness. Per Amarilys Thomas APRN, her blood pressure is typically extremely high, but today it was normal at 136/67. She needs to be restarted on Plavix, per Amarilys William, to protect the recent stent. It is okay to hold aspirin temporarily, but we should restart this as soon as possible. Per Amarilys, we will not restart Eliquis at this time (on a side note, the patient stated she couldn' t afford it anyway). Given her ongoing melanotic stools/active bleed, symptomatic anemia, and the need to continue with antiplatelet therapy, will change her status to inpatient. When she was discharged on 05/11/17, her hemoglobin was 12.6. This am , her hemoglobin was 10.9. Continue to monitor serial hemoglobins. Telemetry revealed a sinus thomas of 1.7 seconds, the patient has been bradycardic running in the upper 40s to low 50s. Per Amarilys, this does not unusual , and the patient is chronically bradycardic. Consider psychiatric consultation for suspected depression. Lipase improved this morning and is now within normal range. Creatinine improved from 1.5-1.2. Potassium was slightly elevated at 5.2, the specimen was grossly hemolyzed. We will recheck potassium this afternoon when her next hemoglobin level is drawn. Continue with IV fluids. Iron studies are pending. H. pylori antibody is also pending. Plan 05/10/17 Patient is improving, and anxious to go home. HGB is down again a bit today. She remains on clear liquids. She required restart on Plavix due to recent stent to prevent reocclusion. Continue to hold NOAC. Resume ASA as soon as we can safely. Will advance to regular diet. Change PPI to oral dosing BID and continue carafate. H.Pylori is still pending. She is bradycardic, but that is her baseline per cardiology. HR is now dipping down to 39. May need a decreased dose of Amiodarone if persists. Continue supportive care. Repeat labs in AM. Possible home tomorrow so we can ensure she does ok with regular food and oral PPI.
[2017-05-10 15:07] VITALS: BP 124/58; PULSE 51; TEMP 96.2; O2SAT 98
[2017-05-10] MEDS ORDERED: PANTOPRAZOLE 40 MG TABLET PO SCH (17:00)
--- NOTE | 2017-05-10 17:35 | Discharge Summary ---
Discharge Information Date of admission: 05/09/17 11:25 Anticipated date of discharge: 05/10/17 Attending Physician: Kristin He MD Primary care physician: Mary Lou Mayorga MD Consults: Jose Juan Mcdaniel M.D. - Discharge Diagnosis (1) GI bleed Status: Acute Gastrointestinal bleeding-upper Melanotic stools Minor blood loss anemia Sinus bradycardia S/P heart catheterization with stent placement in the left circumflex-Dr. Patel (04/30/17) hx Atrial fibrillation Coronary artery disease Recent non-ST elevation [place] Hypertension Type 2 diabetes mellitus Stage III CKD MGUS - (diagnosed 2009) Glaucoma Pituitary tumor (work-up in process) Obesity with BMI 39.0 - Laboratory Labs: Hemoglobin on admission 12.0, INR 1.64, BUN 27, creatinine 1.5, and lipase 421. Hemoccult 1 positive on 05/09. 05/10/17 14:49 05/10/17 04:23 Iron studies and H. pylori serology pending at discharge - Radiology Radiology: CT abdomen/pelvis without contrast on 05/08/17: The lung bases are clear. The unenhanced contours of the liver show an indeterminate low-attenuation lesion measuring 1 cm in size in the right hepatic dome on coronal image #31 additional vague area of low-attenuation in the left lobe of the liver which is difficult to precisely measure. The gallbladder is surgically absent. The spleen appears normal. The pancreas is normal. The adrenal glands are normal. The kidneys are normal. No abdominal or pelvic lymphadenopathy. Bladder is grossly normal. Calcified uterine fibroids. No free fluid. No evidence of a bowel obstruction.. Bone windows show no lytic or blastic osseous lesions. Impression: 1. No acute disease process seen in the abdomen or pelvis. 2. Indeterminate low-attenuation hepatic foci suggest contrast enhanced abdominal CT or MRI for further characterization which can be performed on a nonemergent basis. History of Present Illness HPI: Patient is a 81-year-old female who presents to the ER because she's had dark stools and abdominal pain. She was just dismissed from the hospital May 01 following a stay for a non-ST elevation myocardial infarction with ST depression , followed by heart cath (by Dr. Patel) with stenting of the left circumflex which had 80% stenosis. She was started on Plavix and Eliquis during that hospital stay. She states a few days after dismissal she developed "stomach pain." She hadn't had a bowel movement for several days, when she did have a bowel movement yesterday it was very dark black - darker than what it normally is as she takes iron. Today she had another very dark stool. She's been having abdominal pain since 05/03/17. No history of previous GI bleed or other concerns. She feels very fatigued and has no appetite. States the "stomach feels empty." States ever since her hospitalization she feels short of breath. Just walking across the house causes her to feel overwhelmingly fatigued and out of breath. No chest tightness or pain. She was seen in the ER with her daughter present. She states she is very sensitive to many blood pressure medications and doesn't tolerate most of them. She also reports she's had some recent double vision which was worked up with an MRI showing a possible small pituitary tumor. States she's had some blood and urine "hormone" tests with refrigeration mechanic helper with the only abnormal finding being that her levothyroxine needed to be adjusted. She was due to have a repeat MRI now, but was told she has to wait 8 weeks since she has the stent. Objective Vital signs: Temperature 96.2 F L 05/10/17 15:00 Pulse Rate 51 L 05/10/17 15:00 Respiratory Rate 20 05/10/17 15:00 Blood Pressure 124/58 05/10/17 15:00 Pulse Oximetry 98 05/10/17 15:00 NAD, alert, fluent speech Respirations nonlabored Abdomen soft, nontender Rhythm: Sinus Bradycardia Height/Weight/BMI: Weight 109 kg Hospital Course This is a general summary of the patient's hospital course. For more details refer to the complete medical record. Hospital course: Mrs. Angela was admitted with melena following initiation of aspirin, Plavix, and Eliquis after recent cardiac interventions including cardiac catheterization with stent of the left circumflex on 04/30/17 and initiation of amiodarone and Eliquis for management of atrial fibrillation. The patient has subsequently converted to sinus rhythm. She was seen in consultation by Dr. Mcdaniel who recommended withholding Eliquis and initiating Carafate and Protonix. Hemoglobin was followed serially with minimal drop from 12.0 on admission to 10.9 at discharge. The patient had several small black stools initially before stools normalized. Abdominal discomfort improved within 24 hours of starting Carafate and Protonix and was fully resolved at discharge. Plavix was resumed on 05/09 to minimize risk of acute stent closure and resumption of enteric-coated aspirin was recommended at discharge. Patient will remain off of Eliquis at this time. The patient was on clear liquids throughout most of the hospitalization but diet was advanced with good tolerance on 05/10 after which she was felt stable for discharge. She was hemodynamically stable throughout the hospitalization but was noted to be bradycardic with heart rates typically in the 40s and 50s. Heart rate of 39 was reported early in the morning on 05/10. Bradycardia was well tolerated and she consistently denied lightheadedness or dizziness. Cardiology was notified of bradycardia in the event tachybradycardia syndrome is evolving. Pauses up to 1.7 seconds were described without symptoms reported. I've asked the patient to monitor her blood pressure and heart rate daily so additional data is available when she follows up with cardiology this week. Blood sugars have been well controlled throughout the hospitalization; metformin was held due to limited diet. Patient will continue to monitor blood sugars at home and resume metformin. Patient will discharge on Protonix and Carafate, Eliquis has been discontinued they've recommended that she hold herbal products. She is to follow-up with Dr. Mayorga and Dr. Patel as previously scheduled in the next 3-4 days. She is asked to contact physicians if she becomes lightheaded or has recurrent melanotic stools. Time spent with patient: greater than 35 minutes Resuscitation Status: Full Code Discharge Plan - Discharge Disposition Discharge Date: 05/10/17 Disposition: Discharged Home, Self-Care *Condition: Stable Reason For Visit (Visit label in EMR): Melena - GI Bleed - Discharge Medications *Discharge Medications: New Pantoprazole Tab [Protonix Tab] 40 mg PO ACBID #60 tab Sucralfate [Carafate] 0 gm PO ACHS #120 tab Continue Ferrous Sulfate [Iron] 325 mg PO DAILY Amiodarone [Pacerone] 200 mg PO DAILY #30 tab Clopidogrel [Plavix] 75 mg PO DAILY #30 tab Minoxidil [Loniten] 5 mg PO DAILY #60 tab Cyanocobalamin (Vitamin B-12) [Vitamin B-12] 1,000 mcg PO DAILY Potassium Chloride 10 meq PO BID Levothyroxine Sodium 150 mcg PO ACB Acetaminophen [Acetaminophen Extra Strength] 1,000 mg PO Q4H PRN PRN Reason: Pain Fexofenadine [Lisbeth] 180 mg PO DAILY Metformin [Glucophage] 500 mg PO BID Cholecalciferol (Vitamin D3) [Vitamin D3] 1,000 unit PO HS Lactobacillus Acidophilus [Probiotic] 1 cap PO DAILY Carboxymethylcellulos/Glycerin [Refresh Optive Eye Drops] 1 drop BOTH EYES BID PRN #0 PRN Reason: Prn Orders Furosemide [Lasix 20 mg Tab] 40 mg PO DAILY Nitroglycerin [Nitrostat] 0.4 mg SL Q5M PRN #25 tab PRN Reason: Angina Aspirin [Aspirin EC] 81 mg PO HS Discontinued Turmeric/Turmeric Ext/Pepr Ext [Turmeric Complex 500 mg Cap] 500 mg PO HS Apixaban [Eliquis] 5 mg PO BID #60 tab Ubidecarenone/Vit E Acet [Co Q-10 100 mg Softgel] 100 mg PO DAILY - Discharge Packet/Instructions *Diet: Diabetic, low-fat *Activity: As tolerate *Pain Management/Treatment: Tylenol-see medication list *Wound Care: Not applicable Additional Instructions: Hold Eliquis pending further discussion with cardiology ; can hold aspirin temporarily although will need to be resumed in the near future to protect your stent-can be resumed any time. Add Protonix 40 mg twice daily to decrease stomach acid and sucralfate suspension 4 times daily before meals and at bedtime (dissolve 1 tablet in 2-3 teaspoons of water to form the suspension). I would recommend holding turmeric and coenzyme Q as interaction with other medications unclear. Hold Minoxidil if BP is low or if you are lightheaded--you were getting it while in the hospital. *Expected Signs/Symptoms: Nothing new anticipated, monitor for recurrent dark stools or abdominal pain *Notify Physician if: Lightheadedness, recurrent abdominal pain or rectal bleeding/black stools, chest pain or difficulty breathing *During Business Hours Contact: Dr. Mayorga or Dr. Patel depending on situation *After Business Hours Contact: Call [facility] at [phone] and ask that the on-call physician be paged *Pending Lab/Results: Follow up w/Provider - Referrals/Follow Up *Referrals/Follow Up: Arun Patel MD [Physician] - (As scheduled next week) Mary Lou Mayorga MD [Family Provider] - (As scheduled next week) Jose Juan Mcdaniel MD [Physician] - (If needed due to recurrent bleeding or as instructed by Dr. Mcdaniel) - Patient Handouts - Dismissal Complete Discharge Instructions are:: Complete Physician Narrative - Narrative Attestation Narrative: Date: 05/10/17 Time: 0420
[2017-05-11] MEDS ORDERED: FERROUS SULFATE 324 MG TABLET PO SCH (08:00)
--- NOTE | 2017-05-11 08:47 | Progress Note ---
DATE 05/10/2017 FINDINGS Mrs. Angela was in good spirits today. She states that she had a normal bowel movement today that was not dark in nature. She states that her abdominal discomfort has completely resolved. She is hungry and requesting to go home. OBJECTIVE VITALS: Afebrile. Normotensive. Current vitals include temperature 97.1, pulse 45, respirations 20, blood pressure 126/70, SaO2 95% on room air. HEENT: Normocephalic. Pupils are equally round and react to light and accommodation. CHEST: Clear to auscultation bilaterally. HEART: Regular rate and rhythm. Normal S1, S2, without gallops, murmurs or clicks. ABDOMEN: Palpation of the abdomen reveals it to be soft and nontender. I do not appreciate any evidence for hepatosplenomegaly nor abnormal masses. LABORATORY/RADIOGRAPHIC EVALUATION The patient had a CBC today and her hemoglobin remains stable at 10.5. BMP obtained and found to be without marked abnormalities. ASSESSMENT 81-year-old female with personal history for arteriosclerotic coronary artery disease, status post cardiac catheterization with placement of a drug-eluting stent within left circumflex. Patient with development of postoperative bleeding suggestive of peptic ulcer disease. The patient responding to empiric medical therapy. PLAN The patient's serum H. pylori result is still pending. Will evaluate this upon her discharge to see if the patient does need to be added on additional antibiotics following discharge. Given the fact that she is responding to empiric medical treatment, I do believe that she could be discharged at this point in time. I would DC to home on both Carafate and PPI over the next 4-6 weeks. Patient to follow with me at this time on a p.r.n. basis. LUIS
== END 2017-05-10 17:00 | disposition home or self-care (01) | DRG 379 ==
LOC: MED 10:27 → ED 10:27 → SUATTDRO 13:04 → MED 14:25
PROVIDERS: ADMIT Hospitalist; ATTEND Internal Medicine